=== PATIENT | female | born 1970 | race Two or more races ===

== ENCOUNTER 2022-01-10 14:46 | Emergency (ER) | payer OTHER, SELFPAY ==
[~2022-01-10] VITALS: Ht 180.3 cm; Wt 72.0 kg
[2022-01-10] MEDS ORDERED: normal saline 1000ml 1,000 ML IV ONE (18:45)
--- NOTE | 2022-01-10 19:02 | NUR ---
Pt to CT
[2022-01-10 19:10] LABS: BASOPHILS # (AUTO) 0.1 X10'3 (0-0.2); EOSINOPHILS % (AUTO) 0 % (0-6); HEMATOCRIT 39.2 % (35.0-45.0); HEMOGLOBIN 13.5 g/dl (12.0-16.0); LYMPHOCYTES # (AUTO) 1.1 X10'3 (1.1-4.8); LYMPHOCYTES % (AUTO) 21.1 % (21-51); MEAN CORPUSCULAR HEMOGLOBIN 36.4 PG (27.0-31.0); MEAN CORPUSCULAR HGB CONC 34.5 g/dL (33.0-36.5); MEAN CORPUSCULAR VOLUME 105.8 FL (78-98); MEAN PLATELET VOLUME 9.1 FL (7.4-10.4); MONOCYTES # (AUTO) 0.4 X10'3 (0-0.9); MONOCYTES % (AUTO) 7.4 % (2-12); NEUTROPHILS # (AUTO) 3.7 X10'3 (1.8-7.7); NEUTROPHILS % (AUTO) 70.5 % (42-75); RED BLOOD COUNT 3.71 X10'6 (4.20-5.60); RED CELL DISTRIBUTION WIDTH 12.6 % (11.5-14.5); WHITE BLOOD COUNT 5.2 X10'3 (4.5-11.0)
[2022-01-10 19:27] LABS: ALANINE AMINOTRANSFERASE 410 U/L (12-78); ALBUMIN 3.3 G/DL (3.4-5.0); ALKALINE PHOSPHATASE 119 IU/L (46-116); ANION GAP 14 (8-16); BILIRUBIN,TOTAL 4.8 MG/DL (0.1-1.0); BLOOD UREA NITROGEN 6 MG/DL (7-18); BUN/CREATININE RATIO 7.5 (6.6-38.0); CALCIUM 9.2 MG/DL (8.5-10.1); CHLORIDE 99 MMOL/L (99-107); GLUCOSE 109 MG/DL (70-104); POTASSIUM 3.7 MMOL/L (3.5-5.1); SODIUM 136 MMOL/L (135-145); TOTAL CARBON DIOXIDE 23.5 MMOL/L (24-32); eGFR 76 ML/MIN
[2022-01-10 19:53] LABS: ALBUMIN/GLOBULIN RATIO 0.9 (1.1-1.5)
[2022-01-10 19:55] LABS: ASPARTATE AMINO TRANSFERASE 1297 U/L (10-37)
[2022-01-10 19:58] LABS: PLATELET COUNT 44 X10'3 (140-440)
[2022-01-10 20:31] VITALS: BP 120/85
== END 2022-01-10 21:11 | disposition home or self-care (01) ==
LOC: ER 14:47
DX: S00.83XA Contusion of other part of head, initial encounter (principal); R11.0 Nausea; R42 Dizziness and giddiness; Z72.89 Other problems related to lifestyle; W22.8XXA Striking against or struck by other objects, initial encounter; Y93.89 Activity, other specified; Y92.89 Other specified places as the place of occurrence of the external cause; Y99.8 Other external cause status
CPT/HCPCS: 36415; 70450; 70486; 71045; 80053; 82948; 85025; 93005; 96360; 99285; J7030

== ENCOUNTER 2023-04-15 07:16 | Day surgery (SDC) | payer BC ==
[~2023-04-15] VITALS: Ht 180.3 cm; Wt 76.9 kg
[2023-04-15] VITALS (7 sets, daily range): BP systolic 91–104; BP diastolic 58–71; PULSE 80–89; RESP 14–15; TEMP 98; O2SAT 95–97
[2023-04-15] MEDS ORDERED: albumin 25% 100mL bottle x 1 IV PRN (07:45)
[2023-04-15] MEDS ORDERED: SODI100035 PO (08:09)
[2023-04-15] MEDS ORDERED: MIDO5TAB4 PO (08:09)
[2023-04-15] MEDS ORDERED: SPIR100T5 PO (08:09)
[2023-04-15] MEDS ORDERED: PROP20TA6 PO (08:09)
[2023-04-15] MEDS ORDERED: FURO20TA4 PO (08:09)
[2023-04-15] MEDS ORDERED: MORP15TA PO (08:09)
[2023-04-15] MEDS ORDERED: SPIR25TA5 PO (08:09)
[2023-04-15] MEDS ORDERED: OMEP40CA21 PO (08:09)
[2023-04-15] MEDS ORDERED: MULT-1085 PO (08:10)
== END 2023-04-15 11:10 | disposition home or self-care (01) ==
LOC: SSTAY O 07:16
PROVIDERS: ATTEND Radiology Vascular & Interventional Radiology
DX: K70.31 Alcoholic cirrhosis of liver with ascites (principal); K21.9 Gastro-esophageal reflux disease without esophagitis; I95.9 Hypotension, unspecified; F10.21 Alcohol dependence, in remission; Z79.899 Other long term (current) drug therapy
CPT/HCPCS: 49083; C1729; J3490; P9047; A6258; A6449

== ENCOUNTER 2023-04-23 07:39 | Day surgery (SDC) | payer BC ==
[~2023-04-23] VITALS: Ht 180.3 cm; Wt 73.7 kg
[~2023-04-23 07:39] MED LIST: FURO20TA4 PO; MIDO5TAB4 PO; MORP15TA PO; MULT-1085 PO; OMEP40CA21 PO; PROP20TA6 PO; SODI100035 PO; SPIR25TA5 PO
[2023-04-23] MEDS ORDERED: albumin 25% 100mL bottle x 1 IV PRN (08:00)
[2023-04-23 08:09] VITALS: BP 98/75; PULSE 73; RESP 16; TEMP 97.9; O2SAT 98
[2023-04-23] MEDS ORDERED: LIDOcaine 1% 30ml preserv. free vial SQ STA (08:10)
[2023-04-23 10:15] VITALS: BP 107/71; PULSE 80; RESP 16; O2SAT 98
[2023-04-23 10:30] VITALS: BP 95/61; PULSE 71; RESP 16; O2SAT 98
[2023-04-23 10:40] VITALS: BP 89/57; PULSE 72; RESP 16; O2SAT 98
[2023-04-23 10:55] VITALS: BP 92/57; PULSE 74; RESP 16; O2SAT 98
[2023-04-23 11:10] VITALS: BP 98/56; PULSE 72; RESP 16; O2SAT 98
== END 2023-04-23 11:20 | disposition home or self-care (01) ==
LOC: SSTAY O 07:39
PROVIDERS: ATTEND Radiology Diagnostic Radiology
DX: K70.31 Alcoholic cirrhosis of liver with ascites (principal); K21.9 Gastro-esophageal reflux disease without esophagitis; I95.9 Hypotension, unspecified; Z79.899 Other long term (current) drug therapy; F10.91 Alcohol use, unspecified, in remission
CPT/HCPCS: 49083; C1729; J3490; P9047; A6258

== ENCOUNTER 2023-04-30 06:12 | Day surgery (SDC) | payer BC ==
[~2023-04-30] VITALS: Ht 180.3 cm; Wt 71.5 kg
[2023-04-30] VITALS (9 sets, daily range): BP systolic 81–91; BP diastolic 52–60; PULSE 73–77; RESP 16; TEMP 98; O2SAT 91–96
[2023-04-30] MEDS ORDERED: albumin 25% 100mL bottle x 1 IV PRN (06:35)
--- NOTE | 2023-04-30 08:25 | NUR ---
Elizabeth Marie PA in to speak with pt re low BP. Procedure cancelled due to low BP.
== END 2023-04-30 08:25 | disposition home or self-care (01) ==
LOC: SSTAY O 06:12
PROVIDERS: ATTEND Radiology Vascular & Interventional Radiology
DX: K70.31 Alcoholic cirrhosis of liver with ascites (principal); Z53.8 Procedure and treatment not carried out for other reasons; I95.9 Hypotension, unspecified; K21.9 Gastro-esophageal reflux disease without esophagitis; F10.21 Alcohol dependence, in remission; Z79.899 Other long term (current) drug therapy; Z98.890 Other specified postprocedural states
CPT/HCPCS: A6258; A6449

== ENCOUNTER 2023-05-07 07:10 | Day surgery (SDC) | payer BC ==
[~2023-05-07] VITALS: Ht 180.3 cm; Wt 73.8 kg
[~2023-05-07 07:10] MED LIST changes: -MORP15TA PO
[2023-05-07 07:30] VITALS: BP 71/46; PULSE 63; RESP 14; TEMP 97.7; O2SAT 95
[2023-05-07 07:32] VITALS: BP 69/40
[2023-05-07] MEDS ORDERED: albumin 25% 100mL bottle x 1 IV PRN (07:35)
--- NOTE | 2023-05-07 07:45 | NUR ---
Pt has extremely low BP, checked automatic and manual. Pt's boyfriend stated her BP at home was 50s/30s. Notified Jaspal Marie. Pt transferred to ER. Report given at bedside to ER nurse Eladia.
[2023-05-07] MEDS ORDERED: MIDO10TA PO (13:55)
[2023-05-07] MEDS ORDERED: NAPR-996 PO (13:58)
[2023-05-07] MEDS ORDERED: TRAZ-251 PO (13:58)
== END 2023-05-07 07:45 | disposition home or self-care (01) ==
LOC: SSTAY O 07:10
PROVIDERS: ATTEND Radiology Vascular & Interventional Radiology
DX: R18.8 Other ascites (principal); Z53.8 Procedure and treatment not carried out for other reasons; I95.9 Hypotension, unspecified
CPT/HCPCS: A6258; A6449

== ENCOUNTER 2023-05-07 07:50 | Inpatient (IN) | payer BC ==
[2023-05-07] VITALS (9 sets, daily range): BP systolic 94–110; BP diastolic 61–73; PULSE 63–79; RESP 14–24; O2SAT 90–96
[~2023-05-07] VITALS: Ht 180.3 cm; Wt 81.4 kg
[2023-05-07] MEDS ORDERED: normal saline 1000ml 1,000 ML IVB ONE (08:00)
[2023-05-07] MEDS ORDERED: albumin (human) 25% 100ml IV 100 ML IV ONE (08:00)
[2023-05-07] MEDS ORDERED: normal saline 1000ML IV soln IVB PRN (08:10)
--- NOTE | 2023-05-07 08:59 | NUR ---
Per Dr. Anthony, I can give another 1 liter of NS but run it at 250 ml instead of fast bolus
--- NOTE | 2023-05-07 09:07 | NUR ---
Patient complaining of shortness of breath, O2 sat 92% on room air. Hooked patient to O2 at 2 lpm
[2023-05-07] MEDS ORDERED: CefTRIAXone/D5W-Rocephin 1gm 50 ML IV ONE (09:20)
[2023-05-07 10:06] LABS: MEAN PLATELET VOLUME 9.2 FL (7.4-10.4)
[2023-05-07 10:08] LABS: BASOPHILS # (AUTO) 0.1 X10'3 (0-0.2); BASOPHILS % (AUTO) 1.1 % (0-1); EOSINOPHILS # (AUTO) 0.2 X10'3 (0-0.9); EOSINOPHILS % (AUTO) 2.4 % (0-6); HEMATOCRIT 31.8 % (35.0-45.0); HEMOGLOBIN 10.9 g/dl (12.0-16.0); LYMPHOCYTES # (AUTO) 2.7 X10'3 (1.1-4.8); LYMPHOCYTES % (AUTO) 31.6 % (21-51); MEAN CORPUSCULAR HEMOGLOBIN 35.8 PG (27.0-31.0); MEAN CORPUSCULAR HGB CONC 34.4 g/dL (33.0-36.5); MONOCYTES % (AUTO) 11.4 % (2-12); NEUTROPHILS # (AUTO) 4.7 X10'3 (1.8-7.7); NEUTROPHILS % (AUTO) 53.5 % (42-75); PLATELET COUNT 152 X10'3 (140-440); RED BLOOD COUNT 3.06 X10'6 (4.20-5.60); WHITE BLOOD COUNT 8.7 X10'3 (4.5-11.0)
--- NOTE | 2023-05-07 10:13 | NUR ---
Dr. Anthony was notified about the patient barely making urine output after the adams cath was placed. Urine output approx. 2-3 ml only. He asked me to give the remaining bolus left from the 1L NS that was infusing at 250 ml/hr
[2023-05-07 10:17] LABS: APTT 36 SECONDS (22-32); INR 1.3 INR
[2023-05-07 10:29] LABS: ALANINE AMINOTRANSFERASE 23 U/L (12-78); ALBUMIN 2.3 G/DL (3.4-5.0); ALBUMIN/GLOBULIN RATIO 0.5 (1.1-1.5); ALKALINE PHOSPHATASE 165 IU/L (46-116); ANION GAP 8 (8-16); ASPARTATE AMINO TRANSFERASE 36 U/L (10-37); BILIRUBIN,TOTAL 4.2 MG/DL (0.1-1.0); BLOOD UREA NITROGEN 25 MG/DL (7-18); BUN/CREATININE RATIO 11.5 (10.0-20.0); CALCIUM 8.6 MG/DL (8.5-10.1); CHLORIDE 94 MMOL/L (99-107); CREATININE 2.18 MG/DL (0.40-0.90); GLUCOSE 100 MG/DL (70-104); MAGNESIUM 1.6 MG/DL (1.5-2.4); POTASSIUM 3.6 MMOL/L (3.5-5.1); SODIUM 129 MMOL/L (135-145); TOTAL CARBON DIOXIDE 27.5 MMOL/L (24-32); eCRCL 34 ML/MIN; eGFR 24 ML/MIN
[2023-05-07] MEDS ORDERED: albumin (human) 25% 100 ML IV solution IV ONE ×2 (10:35→11:40)
[2023-05-07 10:37] LABS: LIPASE 1122 U/L (73-393)
[2023-05-07 11:11] LABS: BILIRUBIN,URINE LARGE (Neg); CLARITY,URINE CLOUDY (Clear); COLOR,URINE YELLOW (Yellow); GLUCOSE, URINE 100 mg/dl (Neg); KETONES,URINE 15 mg/dl (Neg); LEUKOCYTE ESTERASE ,URINE TRACE (Neg); NITRITES, URINE POSITIVE (Neg); OCCULT BLOOD,URINE NEGATIVE (Neg); PROTEIN,URINE 100 mg/dl (Neg)
[2023-05-07 11:22] LABS: UA COLLECTION TYPE FOLEY CATH
[2023-05-07 11:25] LABS: BACTERIA,URINE NONE SEEN /HPF (Neg); MUCUS STRANDS NONE SEEN /LPF (Neg); RBC,URINE NONE SEEN /HPF (0-2); SQUAMOUS EPITHELIAL CELL,UR FEW /LPF (FEW); WBC,URINE 0-4 /HPF (0-4)
[2023-05-07] MEDS ORDERED: albumin (human) 25% 100ml IV 100 ML in normal saline 500ml IV soln 400 ML IV ONE ×2 (11:45→12:15)
[2023-05-07] MEDS ORDERED: albumin (human) 25% 100ml IV 500 ML IV ONE (11:50)
[2023-05-07] MEDS ORDERED: magnesium hydroxide 30ml (MOM) UD suspension PO PRN ×2 (12:00→12:20)
[2023-05-07] MEDS ORDERED: magnesium 2GM in 50ml NS 50 ML IV PRN (12:00)
[2023-05-07] MEDS ORDERED: magnesium Cl slow-release 64mg tablet PO PRN (12:00)
[2023-05-07] MEDS ORDERED: VANCOMYCIN 750MG IV in NS 250 ML IV SCH (12:00)
[2023-05-07] MEDS ORDERED: magnesium 4gm in 100ml NS 100 ML IV PRN (12:00)
[2023-05-07] MEDS ORDERED: ondansetron/PF 4mg/2ml inj IV PRN (12:00)
[2023-05-07] MEDS: normal saline 1000ml 1,000 ML IV SCH ×2 (12:00→21:28)
[2023-05-07] MEDS ORDERED: acetaminophen 325mg tablet PO PRN ×3 (12:00→12:20)
[2023-05-07] MEDS ORDERED: potassium Cl 40MEQ/1/2NS 520ml 520 ML IV PRN (12:00)
[2023-05-07] MEDS ORDERED: LidoCAINE 2% Topical Jelly 11mL syringe TOP ONE (12:00)
[2023-05-07] MEDS ORDERED: potassium Cl 20 mEq SR tablet PO PRN (12:00)
[2023-05-07] MEDS ORDERED: mag hydrox/Alum hydrox/simeth 30ml oral suspension PO PRN (12:00)
[2023-05-07] MEDS ORDERED: albumin (Human) 5% 250ml 500 ML IV ONE (12:38)
[2023-05-07] MEDS ORDERED: albumin (Human) 5% 250ml 250 ML IV ONE (12:43)
--- NOTE | 2023-05-07 12:48 | NUR ---
Dr. Anthony inserted a left SC quad central line at bedside
[2023-05-07] MEDS: NORepinephrine 8mg/ 250ml NS 250 ML IV SCH ×2 (13:24→21:24)
[2023-05-07] MEDS ORDERED: MIDO10TA PO (13:55)
[2023-05-07] MEDS ORDERED: TRAZ-251 PO (13:58)
[2023-05-07] MEDS ORDERED: NAPR-996 PO (13:58)
--- NOTE | 2023-05-07 15:27 | NUR ---
Patient in room ED 2. I have received report from Eladia WEN and had the opportunity to ask questions and assume patient care.
[2023-05-07] MEDS: albumin (Human) 5% 250ml 250 ML IV SCH ×3 (18:00→22:45)
--- NOTE | 2023-05-07 18:12 | NUR ---
Problems reprioritized. Patient report given, questions answered & plan of care reviewed with Oneyda WEN.
[2023-05-07] MEDS: morphine 4 MG/ML inj SYRINge IV PRN (19:55)
[2023-05-07] MEDS: K and/or MAG REPLACEMENT MC SCH (20:00)
[2023-05-07] MEDS: heparin, porcine 5000 units/ml vial SQ SCH (20:00)
[2023-05-07] MEDS: docusate sod 100mg capsule PO SCH (20:00)
[2023-05-07] MEDS: morphine 2 MG/ML inj. syringe IV PRN (22:44)
[2023-05-08] VITALS (25 sets, daily range): BP systolic 89–114; BP diastolic 53–71; PULSE 61–85; RESP 10–19; O2SAT 93–98
[2023-05-08] MEDS: morphine 4 MG/ML inj SYRINge IV PRN ×2 (01:49→21:53)
[2023-05-08] MEDS: albumin (Human) 5% 250ml 250 ML IV SCH ×7 (01:49→21:07)
[2023-05-08 02:49] LABS: MAGNESIUM 1.6 MG/DL (1.5-2.4); POTASSIUM 3.2 MMOL/L (3.5-5.1)
--- NOTE | 2023-05-08 06:16 | NUR ---
Problems reprioritized. Patient report given, questions answered & plan of care reviewed with VITA WEN.
[2023-05-08] MEDS: docusate sod 100mg capsule PO SCH ×2 (07:26→19:14)
[2023-05-08] MEDS: nicotine 21mg patch - 24 hr TD SCH (07:26)
[2023-05-08] MEDS: potassium Cl 20 mEq SR tablet PO PRN ×2 (07:27→13:40)
[2023-05-08] MEDS: K and/or MAG REPLACEMENT MC SCH ×2 (07:27→19:20)
[2023-05-08] MEDS: pantoprazole 40MG/NS 100ML BAG 100 ML IV SCH (07:27)
[2023-05-08] MEDS: heparin, porcine 5000 units/ml vial SQ SCH ×2 (07:27→19:11)
[2023-05-08] MEDS: NORepinephrine 8mg/ 250ml NS 250 ML IV SCH ×2 (08:23→18:46)
[2023-05-08 09:20] LABS: BASOPHILS # (AUTO) 0.1 X10'3 (0-0.2); BASOPHILS % (AUTO) 1.2 % (0-1); EOSINOPHILS # (AUTO) 0.5 X10'3 (0-0.9); EOSINOPHILS % (AUTO) 5.1 % (0-6); HEMATOCRIT 28.3 % (35.0-45.0); HEMOGLOBIN 9.8 g/dl (12.0-16.0); LYMPHOCYTES # (AUTO) 3.7 X10'3 (1.1-4.8); LYMPHOCYTES % (AUTO) 35.2 % (21-51); MEAN CORPUSCULAR HEMOGLOBIN 35.9 PG (27.0-31.0); MEAN CORPUSCULAR HGB CONC 34.8 g/dL (33.0-36.5); MEAN CORPUSCULAR VOLUME 103.2 FL (78-98); MEAN PLATELET VOLUME 8.9 FL (7.4-10.4); MONOCYTES # (AUTO) 1.2 X10'3 (0-0.9); MONOCYTES % (AUTO) 11.8 % (2-12); NEUTROPHILS # (AUTO) 4.9 X10'3 (1.8-7.7); NEUTROPHILS % (AUTO) 46.7 % (42-75); PLATELET COUNT 136 X10'3 (140-440); RED BLOOD COUNT 2.74 X10'6 (4.20-5.60); RED CELL DISTRIBUTION WIDTH 15.2 % (11.5-14.5); WHITE BLOOD COUNT 10.6 X10'3 (4.5-11.0)
[2023-05-08] MEDS: CefTRIAXone/D5W-Rocephin 1gm 50 ML IV SCH (09:24)
[2023-05-08 09:38] LABS: ALANINE AMINOTRANSFERASE 19 U/L (12-78); ALBUMIN 3.4 G/DL (3.4-5.0); ALKALINE PHOSPHATASE 125 IU/L (46-116); ANION GAP 9 (8-16); ASPARTATE AMINO TRANSFERASE 27 U/L (10-37); BILIRUBIN,TOTAL 3.2 MG/DL (0.1-1.0); BLOOD UREA NITROGEN 26 MG/DL (7-18); BUN/CREATININE RATIO 11.4 (10.0-20.0); CALCIUM 8.7 MG/DL (8.5-10.1); CHLORIDE 97 MMOL/L (99-107); CREATININE 2.29 MG/DL (0.40-0.90); GLUCOSE 117 MG/DL (70-104); POTASSIUM 3.4 MMOL/L (3.5-5.1); SODIUM 131 MMOL/L (135-145); TOTAL CARBON DIOXIDE 24.8 MMOL/L (24-32); TOTAL PROTEIN 6.8 G/DL (6.4-8.2); eCRCL 32 ML/MIN; eGFR 22 ML/MIN
[2023-05-08] MEDS: midodrine 5mg tablet PO SCH ×3 (10:50→23:04)
[2023-05-08] MEDS ORDERED: albumin (human) 25% 100ml IV 100 ML IV ONE ×2 (10:53→11:40)
[2023-05-08] MEDS ORDERED: albumin (human) 25% 100 ML IV solution IV ONE (11:50)
--- NOTE | 2023-05-08 12:06 | NUR ---
Initial: Pt admit for ESLD, hypotension/septic shock, and ADRIANA vs hepatorenal syndrome per EMR. Pt started on a 2g sodium restricted diet today, pending PO intake. Per EMR pt receives paracentesis process 2 times a week and plan for possible paracentesis tomorrow per CICU round discussion. LBM on 05/07 receiving routine bowel care per EMR. Will continue to monitor. Recommendations: 1.continue low sodium diet 2.Monitor PO intake and need for ONS 3.consider adding MVI,thiamin, and folate due to Etoh hx 4.routine bowel care 5.scaled wt this admit;subsequent weekly scaled wt Addendum: 05/08/23 at [address] Amended: Links added.
[2023-05-08 15:40] LABS: ALBUMIN,BODY FLUID < 0.6 G/DL; TOTAL PROTEIN,BODY FLUID < 2.0 G/DL
[2023-05-08 15:53] LABS: BFAPPEAR CLOUDY; BFCOLOR YELLOW; BFSOURCE ASCITES FLD; BFVOLUME 60 ML
[2023-05-08 15:54] LABS: BF RBC COUNT 39 /CU MM; BF WBC COUNT 19 /CU MM (0-1000); LYMPHOCYTES,BODY FLUID 70 %; MONOCYTES,BODY FLUID 24 %; NEUTROPHILS,BODY FLUID 6 %
[2023-05-08] MEDS: ondansetron/PF 4mg/2ml inj IV PRN (17:09)
--- NOTE | 2023-05-08 18:30 | NUR ---
Patient in room CICU 2013. I have received report from Wes WEN and had the opportunity to ask questions and assume patient care.
[2023-05-09] VITALS (25 sets, daily range): BP systolic 85–119; BP diastolic 49–69; PULSE 75–101; RESP 12–20; O2SAT 91–97
[2023-05-09] MEDS: albumin (Human) 5% 250ml 250 ML IV SCH ×8 (00:18→22:10)
[2023-05-09 01:32] LABS: UREA NITROGEN 24HR,URINE 2.1 GM/24HR (7-20)
[2023-05-09 03:18] LABS: LIPASE 462 U/L (73-393); MAGNESIUM 1.5 MG/DL (1.5-2.4)
[2023-05-09 03:41] LABS: BASOPHILS # (AUTO) 0.1 X10'3 (0-0.2); BASOPHILS % (AUTO) 1.2 % (0-1); EOSINOPHILS # (AUTO) 0.4 X10'3 (0-0.9); EOSINOPHILS % (AUTO) 4.3 % (0-6); HEMATOCRIT 26.4 % (35.0-45.0); HEMOGLOBIN 9.2 g/dl (12.0-16.0); LYMPHOCYTES # (AUTO) 3.3 X10'3 (1.1-4.8); LYMPHOCYTES % (AUTO) 39.2 % (21-51); MEAN CORPUSCULAR HEMOGLOBIN 35.6 PG (27.0-31.0); MEAN CORPUSCULAR HGB CONC 34.7 g/dL (33.0-36.5); MEAN CORPUSCULAR VOLUME 102.5 FL (78-98); MONOCYTES % (AUTO) 11.5 % (2-12); NEUTROPHILS # (AUTO) 3.7 X10'3 (1.8-7.7); NEUTROPHILS % (AUTO) 43.8 % (42-75); PLATELET COUNT 120 X10'3 (140-440); RED BLOOD COUNT 2.57 X10'6 (4.20-5.60); RED CELL DISTRIBUTION WIDTH 14.9 % (11.5-14.5); WHITE BLOOD COUNT 8.4 X10'3 (4.5-11.0)
--- NOTE | 2023-05-09 06:15 | NUR ---
Problems reprioritized. Patient report given, questions answered & plan of care reviewed with Aubrey WEN.
[2023-05-09 07:26] LABS: ALANINE AMINOTRANSFERASE 14 U/L (12-78); ALBUMIN 3.7 G/DL (3.4-5.0); ALBUMIN/GLOBULIN RATIO 1.4 (1.1-1.5); ALKALINE PHOSPHATASE 93 IU/L (46-116); ANION GAP 12 (8-16); ASPARTATE AMINO TRANSFERASE 23 U/L (10-37); BILIRUBIN,TOTAL 2.3 MG/DL (0.1-1.0); BLOOD UREA NITROGEN 23 MG/DL (7-18); BUN/CREATININE RATIO 10.2 (10.0-20.0); CALCIUM 8.9 MG/DL (8.5-10.1); CHLORIDE 99 MMOL/L (99-107); CREATININE 2.26 MG/DL (0.40-0.90); GLUCOSE 134 MG/DL (70-104); POTASSIUM 3.6 MMOL/L (3.5-5.1); SODIUM 134 MMOL/L (135-145); TOTAL CARBON DIOXIDE 22.6 MMOL/L (24-32); TOTAL PROTEIN 6.3 G/DL (6.4-8.2); eCRCL 33 ML/MIN; eGFR 23 ML/MIN
[2023-05-09] MEDS: pantoprazole 40MG/NS 100ML BAG 100 ML IV SCH (07:53)
[2023-05-09] MEDS: folic acid 1mg tablet PO SCH (08:00)
[2023-05-09] MEDS: thiamine 100mg tablet PO SCH (08:00)
[2023-05-09] MEDS: docusate sod 100mg capsule PO SCH ×2 (08:00→20:14)
[2023-05-09] MEDS: midodrine 5mg tablet PO SCH ×3 (08:00→23:29)
[2023-05-09] MEDS: K and/or MAG REPLACEMENT MC SCH ×2 (08:00→20:00)
[2023-05-09] MEDS: multivitamins, therapeutics tablet PO SCH (08:00)
[2023-05-09] MEDS: nicotine 21mg patch - 24 hr TD SCH (08:01)
[2023-05-09] MEDS: heparin, porcine 5000 units/ml vial SQ SCH ×2 (08:01→20:15)
[2023-05-09] MEDS: CefTRIAXone/D5W-Rocephin 1gm 50 ML IV SCH (08:16)
[2023-05-09] MEDS ORDERED: normal saline 1000ml 1,000 ML IV ONE ×2 (09:40→11:10)
[2023-05-09] MEDS ORDERED: albumin (human) 25% 100 ML IV solution IV ONE (11:10)
[2023-05-09] MEDS ORDERED: albumin (human) 25% 100ml IV 400 ML IV ONE (11:25)
[2023-05-09] MEDS: NORepinephrine 8mg/ 250ml NS 250 ML IV SCH (12:37)
[2023-05-09] MEDS: morphine 2 MG/ML inj. syringe IV PRN ×2 (16:50→20:58)
--- NOTE | 2023-05-09 18:30 | NUR ---
Received patient report from BEHZAD Parks, Questions were answered and plan of care reviewed. Assumed care of patient. Patient without complaints, BLL, sr up x3, call connors within reach.
--- NOTE | 2023-05-09 18:35 | NUR ---
Problems reprioritized. Patient report given, questions answered & plan of care reviewed with BEHZAD Goel.
[2023-05-10] VITALS (23 sets, daily range): BP systolic 94–120; BP diastolic 55–74; PULSE 79–99; RESP 12–29; O2SAT 89–97
[2023-05-10] MEDS: albumin (Human) 5% 250ml 250 ML IV SCH ×9 (01:14→22:51)
[2023-05-10] MEDS: morphine 2 MG/ML inj. syringe IV PRN ×4 (01:15→15:18)
[2023-05-10 02:21] LABS: MAGNESIUM 1.5 MG/DL (1.5-2.4)
--- NOTE | 2023-05-10 06:29 | NUR ---
Patient report given, questions answered & plan of care reviewed with BEHZAD Leon
[2023-05-10] MEDS: K and/or MAG REPLACEMENT MC SCH ×2 (08:00→20:00)
[2023-05-10] MEDS: CefTRIAXone/D5W-Rocephin 1gm 50 ML IV SCH (08:20)
[2023-05-10] MEDS: folic acid 1mg tablet PO SCH (08:20)
[2023-05-10] MEDS: midodrine 5mg tablet PO SCH ×3 (08:20→23:33)
[2023-05-10] MEDS: docusate sod 100mg capsule PO SCH ×2 (08:20→20:23)
[2023-05-10] MEDS: pantoprazole 40MG/NS 100ML BAG 100 ML IV SCH (08:20)
[2023-05-10] MEDS: multivitamins, therapeutics tablet PO SCH (08:21)
[2023-05-10] MEDS: nicotine 21mg patch - 24 hr TD SCH (08:21)
[2023-05-10] MEDS: thiamine 100mg tablet PO SCH (08:21)
[2023-05-10] MEDS: heparin, porcine 5000 units/ml vial SQ SCH ×2 (08:21→20:23)
[2023-05-10 08:33] LABS: ALANINE AMINOTRANSFERASE 13 U/L (12-78); ALBUMIN/GLOBULIN RATIO 1.9 (1.1-1.5); ALKALINE PHOSPHATASE 79 IU/L (46-116); ANION GAP 13 (8-16); ASPARTATE AMINO TRANSFERASE 17 U/L (10-37); BILIRUBIN,TOTAL 2.3 MG/DL (0.1-1.0); BLOOD UREA NITROGEN 16 MG/DL (7-18); BUN/CREATININE RATIO 9.2 (10.0-20.0); CHLORIDE 102 MMOL/L (99-107); CREATININE 1.74 MG/DL (0.40-0.90); GLUCOSE 121 MG/DL (70-104); POTASSIUM 3.5 MMOL/L (3.5-5.1); SODIUM 136 MMOL/L (135-145); TOTAL CARBON DIOXIDE 20.6 MMOL/L (24-32); TOTAL PROTEIN 6.1 G/DL (6.4-8.2); eCRCL 42 ML/MIN; eGFR 31 ML/MIN
[2023-05-10 08:39] LABS: BASOPHILS # (AUTO) 0.1 X10'3 (0-0.2); BASOPHILS % (AUTO) 1.3 % (0-1); EOSINOPHILS # (AUTO) 0.3 X10'3 (0-0.9); EOSINOPHILS % (AUTO) 3.7 % (0-6); HEMATOCRIT 25.9 % (35.0-45.0); HEMOGLOBIN 8.8 g/dl (12.0-16.0); LYMPHOCYTES # (AUTO) 3.2 X10'3 (1.1-4.8); LYMPHOCYTES % (AUTO) 43.2 % (21-51); MEAN CORPUSCULAR HEMOGLOBIN 35.2 PG (27.0-31.0); MEAN CORPUSCULAR VOLUME 103.5 FL (78-98); MEAN PLATELET VOLUME 9.3 FL (7.4-10.4); MONOCYTES # (AUTO) 0.7 X10'3 (0-0.9); MONOCYTES % (AUTO) 9.4 % (2-12); NEUTROPHILS # (AUTO) 3.2 X10'3 (1.8-7.7); NEUTROPHILS % (AUTO) 42.4 % (42-75); PLATELET COUNT 108 X10'3 (140-440); RED CELL DISTRIBUTION WIDTH 15.5 % (11.5-14.5); WHITE BLOOD COUNT 7.5 X10'3 (4.5-11.0)
[2023-05-10] MEDS: lactulose 20gm/30ml cup PO SCH ×2 (10:34→20:23)
[2023-05-10] MEDS: ondansetron/PF 4mg/2ml inj IV PRN (15:18)
[2023-05-11] VITALS (24 sets, daily range): BP systolic 98–120; BP diastolic 52–75; PULSE 97–114; RESP 14–24; O2SAT 90–95
[2023-05-11] MEDS: albumin (Human) 5% 250ml 250 ML IV SCH ×5 (01:14→17:32)
[2023-05-11] MEDS: morphine 2 MG/ML inj. syringe IV PRN ×4 (01:55→20:23)
[2023-05-11 02:31] LABS: SODIUM,URINE RANDOM < 15 MEQ/L
[2023-05-11 05:02] LABS: BASOPHILS # (AUTO) 0.1 X10'3 (0-0.2); BASOPHILS % (AUTO) 0.9 % (0-1); EOSINOPHILS # (AUTO) 0.2 X10'3 (0-0.9); EOSINOPHILS % (AUTO) 1.4 % (0-6); HEMATOCRIT 24.1 % (35.0-45.0); HEMOGLOBIN 8.1 g/dl (12.0-16.0); LYMPHOCYTES # (AUTO) 2.7 X10'3 (1.1-4.8); LYMPHOCYTES % (AUTO) 22.5 % (21-51); MEAN CORPUSCULAR HEMOGLOBIN 34.8 PG (27.0-31.0); MEAN CORPUSCULAR HGB CONC 33.7 g/dL (33.0-36.5); MEAN PLATELET VOLUME 9.4 FL (7.4-10.4); MONOCYTES % (AUTO) 8.1 % (2-12); NEUTROPHILS # (AUTO) 8.1 X10'3 (1.8-7.7); NEUTROPHILS % (AUTO) 67.1 % (42-75); PLATELET COUNT 99 X10'3 (140-440); RED BLOOD COUNT 2.34 X10'6 (4.20-5.60); RED CELL DISTRIBUTION WIDTH 15.4 % (11.5-14.5); WHITE BLOOD COUNT 12.1 X10'3 (4.5-11.0)
[2023-05-11 05:08] LABS: ALANINE AMINOTRANSFERASE 10 U/L (12-78); ALKALINE PHOSPHATASE 59 IU/L (46-116); ANION GAP 11 (8-16); ASPARTATE AMINO TRANSFERASE 14 U/L (10-37); BILIRUBIN,TOTAL 3.2 MG/DL (0.1-1.0); BLOOD UREA NITROGEN 14 MG/DL (7-18); BUN/CREATININE RATIO 10.4 (10.0-20.0); CALCIUM 9.1 MG/DL (8.5-10.1); CHLORIDE 104 MMOL/L (99-107); CREATININE 1.35 MG/DL (0.40-0.90); GLUCOSE 102 MG/DL (70-104); MAGNESIUM 1.3 MG/DL (1.5-2.4); POTASSIUM 3.9 MMOL/L (3.5-5.1); SODIUM 136 MMOL/L (135-145); TOTAL CARBON DIOXIDE 21.2 MMOL/L (24-32); eCRCL 54 ML/MIN; eGFR 41 ML/MIN
[2023-05-11] MEDS: NORepinephrine 8mg/ 250ml NS 250 ML IV SCH (06:40)
[2023-05-11] MEDS: K and/or MAG REPLACEMENT MC SCH ×2 (08:00→20:00)
[2023-05-11] MEDS: CefTRIAXone/D5W-Rocephin 1gm 50 ML IV SCH (08:16)
[2023-05-11] MEDS: pantoprazole 40MG/NS 100ML BAG 100 ML IV SCH (08:16)
[2023-05-11] MEDS: thiamine 100mg tablet PO SCH (08:18)
[2023-05-11] MEDS: nicotine 21mg patch - 24 hr TD SCH (08:18)
[2023-05-11] MEDS: docusate sod 100mg capsule PO SCH ×2 (08:18→20:00)
[2023-05-11] MEDS: midodrine 5mg tablet PO SCH ×2 (08:18→16:15)
[2023-05-11] MEDS: folic acid 1mg tablet PO SCH (08:18)
[2023-05-11] MEDS: multivitamins, therapeutics tablet PO SCH (08:18)
[2023-05-11] MEDS: lactulose 20gm/30ml cup PO SCH ×2 (08:19→20:00)
[2023-05-11] MEDS: heparin, porcine 5000 units/ml vial SQ SCH ×2 (09:17→20:23)
--- NOTE | 2023-05-11 10:20 | NUR ---
F/u 05/11: Pt PO remains poor ~31% avg initial Na-restricted diet declining to 0% mostly past [address] recommends Ensure Enlive TIDWM to assist meeting needs; MD notified. -15L paracentesis 05/08 w/ noted abdominal pain persisting per EMR; likely influencing PO trends. LBM 05/10 though only smear receiving routine colace and lactulose per EMR. Receiving routine thiamine, folic acid, and MVI for etoh hx. Will monitor for further nutrition intervention needs. Recommendations: 1. continue low sodium diet; liberalize to regular if poor PO persists; encourage PO 2. Ensure Enlive TIDWM; pending physician verification of ONS 3. continue routine MVI, thiamine, and folate due to Etoh hx 4. routine bowel care 5. daily scaled wt Addendum: 05/11/23 at [address] Amended: Links added.
[2023-05-11] MEDS: lactose-reduced food (Ensure Enlive) - 237ml bottle PO SCH ×2 (13:00→18:00)
--- NOTE | 2023-05-11 16:36 | NUR ---
provided answers to questions about liver disease and current needs.
--- NOTE | 2023-05-11 16:37 | NUR ---
Dr. Hill is able to observe urine color and aware of decreased output. He has advised patient to lie on side to support renal function. Pt. has pain with positioning but is attempting to stay in the side position.
[2023-05-12] VITALS (23 sets, daily range): BP systolic 92–116; BP diastolic 55–76; PULSE 95–107; RESP 15–27; TEMP 97.9–98.1; O2SAT 91–98
[2023-05-12] MEDS: midodrine 5mg tablet PO SCH ×4 (00:02→23:43)
[2023-05-12] MEDS: morphine 2 MG/ML inj. syringe IV PRN ×3 (00:29→08:50)
[2023-05-12] MEDS: NORepinephrine 8mg/ 250ml NS 250 ML IV SCH ×2 (00:44→11:01)
[2023-05-12 02:39] LABS: ALKALINE PHOSPHATASE 58 IU/L (46-116); BILIRUBIN,TOTAL 4.1 MG/DL (0.1-1.0); BLOOD UREA NITROGEN 12 MG/DL (7-18); CHLORIDE 104 MMOL/L (99-107); POTASSIUM 3.8 MMOL/L (3.5-5.1); TOTAL PROTEIN 6.1 G/DL (6.4-8.2)
[2023-05-12 02:51] LABS: BASOPHILS # (AUTO) 0.1 X10'3 (0-0.2); BASOPHILS % (AUTO) 1.3 % (0-1); EOSINOPHILS # (AUTO) 0.3 X10'3 (0-0.9); EOSINOPHILS % (AUTO) 3.1 % (0-6); HEMATOCRIT 24.3 % (35.0-45.0); HEMOGLOBIN 8.3 g/dl (12.0-16.0); LYMPHOCYTES # (AUTO) 2.8 X10'3 (1.1-4.8); LYMPHOCYTES % (AUTO) 25.2 % (21-51); MEAN CORPUSCULAR HEMOGLOBIN 35.5 PG (27.0-31.0); MEAN CORPUSCULAR HGB CONC 34.2 g/dL (33.0-36.5); MEAN CORPUSCULAR VOLUME 103.8 FL (78-98); MEAN PLATELET VOLUME 9.5 FL (7.4-10.4); MONOCYTES # (AUTO) 1.1 X10'3 (0-0.9); NEUTROPHILS # (AUTO) 6.8 X10'3 (1.8-7.7); NEUTROPHILS % (AUTO) 60.4 % (42-75); PLATELET COUNT 99 X10'3 (140-440); RED BLOOD COUNT 2.34 X10'6 (4.20-5.60); RED CELL DISTRIBUTION WIDTH 15.9 % (11.5-14.5); WHITE BLOOD COUNT 11.3 X10'3 (4.5-11.0)
[2023-05-12 06:07] LABS: ALANINE AMINOTRANSFERASE 12 U/L (12-78); ALBUMIN 4.1 G/DL (3.4-5.0); ALBUMIN/GLOBULIN RATIO 2.1 (1.1-1.5); ANION GAP 12 (8-16); ASPARTATE AMINO TRANSFERASE 16 U/L (10-37); BUN/CREATININE RATIO 9.5 (10.0-20.0); CALCIUM 9.4 MG/DL (8.5-10.1); CREATININE 1.26 MG/DL (0.40-0.90); GLUCOSE 101 MG/DL (70-104); SODIUM 137 MMOL/L (135-145); TOTAL CARBON DIOXIDE 20.7 MMOL/L (24-32); eCRCL 58 ML/MIN; eGFR 45 ML/MIN
--- NOTE | 2023-05-12 06:31 | NUR ---
Patient report given, questions answered & plan of care reviewed with BEHZAD Goel
[2023-05-12] MEDS: pantoprazole 40MG/NS 100ML BAG 100 ML IV SCH (08:32)
[2023-05-12] MEDS: K and/or MAG REPLACEMENT MC SCH ×2 (08:36→19:41)
[2023-05-12] MEDS: docusate sod 100mg capsule PO SCH ×2 (08:41→19:40)
[2023-05-12] MEDS: lactulose 20gm/30ml cup PO SCH ×2 (08:41→19:37)
[2023-05-12] MEDS: thiamine 100mg tablet PO SCH (08:41)
[2023-05-12] MEDS: multivitamins, therapeutics tablet PO SCH (08:41)
[2023-05-12] MEDS: folic acid 1mg tablet PO SCH (08:41)
[2023-05-12] MEDS: nicotine 21mg patch - 24 hr TD SCH (08:43)
[2023-05-12] MEDS: heparin, porcine 5000 units/ml vial SQ SCH ×2 (08:44→19:40)
[2023-05-12] MEDS ORDERED: furosemide 40mg tablet PO ONE (11:45)
[2023-05-12] MEDS: oxyCODONE IR 5mg (immed. release) tablet PO PRN ×3 (12:13→21:20)
--- NOTE | 2023-05-12 18:32 | NUR ---
Problems reprioritized. Patient report given, questions answered & plan of care reviewed with Aviva WEN, patient stable at transfer of care.
[2023-05-13] VITALS (9 sets, daily range): BP systolic 104–124; BP diastolic 56–74; PULSE 108–118; RESP 15–21; TEMP 97.8–98.6; O2SAT 94–98
[2023-05-13] MEDS: oxyCODONE IR 5mg (immed. release) tablet PO PRN ×4 (01:23→19:35)
--- NOTE | 2023-05-13 06:18 | NUR ---
Problems reprioritized. Patient report given, questions answered & plan of care reviewed with
--- NOTE | 2023-05-13 06:30 | NUR ---
Patient in room PCU 3018. I have received report from BEHZAD Perkins and had the opportunity to ask questions and assume patient care.
[2023-05-13] MEDS: K and/or MAG REPLACEMENT MC SCH ×2 (08:00→20:00)
[2023-05-13] MEDS: pantoprazole 40MG/NS 100ML BAG 100 ML IV SCH (08:59)
[2023-05-13] MEDS: docusate sod 100mg capsule PO SCH ×2 (08:59→19:39)
[2023-05-13] MEDS: multivitamins, therapeutics tablet PO SCH (09:00)
[2023-05-13] MEDS: midodrine 5mg tablet PO SCH ×3 (09:00→23:28)
[2023-05-13] MEDS: furosemide 40mg tablet PO SCH (09:01)
[2023-05-13] MEDS: lactulose 20gm/30ml cup PO SCH ×2 (09:02→19:36)
[2023-05-13] MEDS: folic acid 1mg tablet PO SCH (09:02)
[2023-05-13] MEDS: thiamine 100mg tablet PO SCH (09:02)
[2023-05-13] MEDS: nicotine 21mg patch - 24 hr TD SCH (09:04)
[2023-05-13] MEDS: heparin, porcine 5000 units/ml vial SQ SCH ×2 (09:04→19:37)
[2023-05-13 11:25] LABS: BASOPHILS # (AUTO) 0.1 X10'3 (0-0.2); BASOPHILS % (AUTO) 0.9 % (0-1); EOSINOPHILS # (AUTO) 0.4 X10'3 (0-0.9); EOSINOPHILS % (AUTO) 2.7 % (0-6); HEMATOCRIT 26.7 % (35.0-45.0); LYMPHOCYTES # (AUTO) 2.8 X10'3 (1.1-4.8); MEAN CORPUSCULAR HEMOGLOBIN 35.1 PG (27.0-31.0); MEAN CORPUSCULAR HGB CONC 33.8 g/dL (33.0-36.5); MEAN CORPUSCULAR VOLUME 103.8 FL (78-98); MEAN PLATELET VOLUME 9.1 FL (7.4-10.4); MONOCYTES # (AUTO) 1.5 X10'3 (0-0.9); NEUTROPHILS # (AUTO) 8.5 X10'3 (1.8-7.7); NEUTROPHILS % (AUTO) 64.4 % (42-75); PLATELET COUNT 105 X10'3 (140-440); RED BLOOD COUNT 2.58 X10'6 (4.20-5.60); RED CELL DISTRIBUTION WIDTH 16.1 % (11.5-14.5); WHITE BLOOD COUNT 13.3 X10'3 (4.5-11.0)
[2023-05-13 11:41] LABS: ALANINE AMINOTRANSFERASE 7 U/L (12-78); ALBUMIN 3.7 G/DL (3.4-5.0); ALKALINE PHOSPHATASE 82 IU/L (46-116); ANION GAP 13 (8-16); ASPARTATE AMINO TRANSFERASE 18 U/L (10-37); BLOOD UREA NITROGEN 17 MG/DL (7-18); BUN/CREATININE RATIO 15.3 (10.0-20.0); CALCIUM 9.6 MG/DL (8.5-10.1); CHLORIDE 100 MMOL/L (99-107); CREATININE 1.11 MG/DL (0.40-0.90); GLUCOSE 117 MG/DL (70-104); MAGNESIUM 1.4 MG/DL (1.5-2.4); POTASSIUM 3.6 MMOL/L (3.5-5.1); SODIUM 133 MMOL/L (135-145); TOTAL CARBON DIOXIDE 20.4 MMOL/L (24-32); eCRCL 66 ML/MIN; eGFR 52 ML/MIN
[2023-05-13 11:42] LABS: ALBUMIN/GLOBULIN RATIO 1.4 (1.1-1.5); TOTAL PROTEIN 6.4 G/DL (6.4-8.2)
[2023-05-13] MEDS: spironolactone 50 MG tablet PO SCH (12:01)
[2023-05-13] MEDS: NORepinephrine 8mg/ 250ml NS 250 ML IV SCH (12:52)
--- NOTE | 2023-05-13 13:43 | NUR ---
IR/Angio team in pt's room to do a paracentesis.
[2023-05-13] MEDS ORDERED: albumin (human) 25% 100 ML IV solution IV ONE (14:45)
--- NOTE | 2023-05-13 15:15 | NUR ---
Problems reprioritized. Patient report given, questions answered & plan of care reviewed with CAROLYN Em.
--- NOTE | 2023-05-13 22:35 | NUR ---
okayed to replace magnesium per protocol
[2023-05-13] MEDS ORDERED: magnesium Cl slow-release 64mg tablet PO PRN (23:15)
[2023-05-14] VITALS (7 sets, daily range): BP systolic 96–108; BP diastolic 48–60; PULSE 106–116; RESP 15–19; TEMP 98–98.5; O2SAT 96–99
[2023-05-14] MEDS: oxyCODONE IR 5mg (immed. release) tablet PO PRN ×4 (00:53→20:32)
--- NOTE | 2023-05-14 06:34 | NUR ---
Problems reprioritized. Patient report given, questions answered & plan of care reviewed with
[2023-05-14] MEDS ORDERED: magnesium Cl slow-release 64mg tablet PO SCH (08:00)
[2023-05-14] MEDS: lactulose 20gm/30ml cup PO SCH (09:39)
[2023-05-14] MEDS: pantoprazole 40MG/NS 100ML BAG 100 ML IV SCH (09:39)
[2023-05-14] MEDS: furosemide 40mg tablet PO SCH (09:40)
[2023-05-14] MEDS: midodrine 5mg tablet PO SCH ×2 (09:40→16:44)
[2023-05-14] MEDS: multivitamins, therapeutics tablet PO SCH (09:40)
[2023-05-14] MEDS: thiamine 100mg tablet PO SCH (09:41)
[2023-05-14] MEDS: spironolactone 50 MG tablet PO SCH (09:41)
[2023-05-14] MEDS: docusate sod 100mg capsule PO SCH ×2 (09:41→20:00)
[2023-05-14] MEDS: folic acid 1mg tablet PO SCH (09:41)
[2023-05-14] MEDS: heparin, porcine 5000 units/ml vial SQ SCH ×2 (09:42→20:33)
[2023-05-14] MEDS: nicotine 21mg patch - 24 hr TD SCH (09:43)
[2023-05-14 12:02] LABS: BASOPHILS # (AUTO) 0.1 X10'3 (0-0.2); BASOPHILS % (AUTO) 0.5 % (0-1); EOSINOPHILS # (AUTO) 0.4 X10'3 (0-0.9); EOSINOPHILS % (AUTO) 2.8 % (0-6); HEMATOCRIT 24.6 % (35.0-45.0); HEMOGLOBIN 8.3 g/dl (12.0-16.0); LYMPHOCYTES # (AUTO) 2.3 X10'3 (1.1-4.8); LYMPHOCYTES % (AUTO) 15.2 % (21-51); MEAN CORPUSCULAR HEMOGLOBIN 34.6 PG (27.0-31.0); MEAN CORPUSCULAR HGB CONC 33.8 g/dL (33.0-36.5); MEAN CORPUSCULAR VOLUME 102.2 FL (78-98); MEAN PLATELET VOLUME 9.5 FL (7.4-10.4); MONOCYTES # (AUTO) 1.5 X10'3 (0-0.9); MONOCYTES % (AUTO) 9.9 % (2-12); NEUTROPHILS # (AUTO) 10.8 X10'3 (1.8-7.7); NEUTROPHILS % (AUTO) 71.6 % (42-75); PLATELET COUNT 99 X10'3 (140-440)
[2023-05-14 12:24] LABS: ALBUMIN 3.4 G/DL (3.4-5.0); ALKALINE PHOSPHATASE 81 IU/L (46-116); ANION GAP 10 (8-16); ASPARTATE AMINO TRANSFERASE 16 U/L (10-37); BILIRUBIN,TOTAL 5.5 MG/DL (0.1-1.0); BLOOD UREA NITROGEN 17 MG/DL (7-18); CALCIUM 9.3 MG/DL (8.5-10.1); CHLORIDE 99 MMOL/L (99-107); CREATININE 1.13 MG/DL (0.40-0.90); GLUCOSE 130 MG/DL (70-104); MAGNESIUM 1.2 MG/DL (1.5-2.4); POTASSIUM 3.4 MMOL/L (3.5-5.1); PRO BRAIN NATRIURETIC PEPTIDE 4727 PG/ML (0-125); SODIUM 131 MMOL/L (135-145); TOTAL CARBON DIOXIDE 22.3 MMOL/L (24-32); eCRCL 65 ML/MIN; eGFR 51 ML/MIN
[2023-05-14 12:30] LABS: ALANINE AMINOTRANSFERASE < 6 U/L (12-78); ALBUMIN/GLOBULIN RATIO 1.4 (1.1-1.5); TOTAL PROTEIN 5.9 G/DL (6.4-8.2)
[2023-05-14] MEDS: K and/or MAG REPLACEMENT MC SCH ×2 (12:51→20:34)
[2023-05-14] MEDS ORDERED: magnesium 4gm in 100ml NS 100 ML IV PRN (13:15)
[2023-05-14] MEDS ORDERED: magnesium 2GM in 50ml NS 50 ML IV PRN (13:15)
[2023-05-14] MEDS ORDERED: potassium Cl 20 mEq SR tablet PO PRN (13:15)
[2023-05-14] MEDS ORDERED: potassium Cl 40MEQ/1/2NS 520ml 520 ML IV PRN (13:15)
[2023-05-14] MEDS: potassium Cl 20 mEq SR tablet PO PRN ×2 (13:29→20:32)
[2023-05-14] MEDS: lactose-reduced food (Ensure Enlive) - 237ml bottle PO SCH (18:00)
--- NOTE | 2023-05-14 18:38 | NUR ---
Problems reprioritized. Patient report given, questions answered & plan of care reviewed with BEHZAD Perkins.
--- NOTE | 2023-05-14 19:00 | NUR ---
Dr. Ott cld and is talking with [facility] about transfer, he need a cvc, Pt INR and cmp drawn early (2am).
[2023-05-14] MEDS: magnesium Cl slow-release 64mg tablet PO PRN (20:30)
[2023-05-15] MEDS: midodrine 5mg tablet PO SCH ×3 (00:01→16:11)
[2023-05-15 02:00] VITALS: BP 96/58; PULSE 105; RESP 14; TEMP 99; O2SAT 97
[2023-05-15] MEDS: potassium Cl 20 mEq SR tablet PO PRN (02:13)
[2023-05-15] MEDS: oxyCODONE IR 5mg (immed. release) tablet PO PRN ×4 (02:14→17:10)
[2023-05-15 04:18] LABS: BASOPHILS # (AUTO) 0.2 X10'3 (0-0.2); EOSINOPHILS # (AUTO) 0.8 X10'3 (0-0.9); HEMATOCRIT 23.9 % (35.0-45.0); HEMOGLOBIN 8.1 g/dl (12.0-16.0); LYMPHOCYTES # (AUTO) 3.2 X10'3 (1.1-4.8); MEAN CORPUSCULAR HEMOGLOBIN 34.6 PG (27.0-31.0); MEAN CORPUSCULAR HGB CONC 33.9 g/dL (33.0-36.5); MEAN CORPUSCULAR VOLUME 102.2 FL (78-98); MEAN PLATELET VOLUME 9.1 FL (7.4-10.4); MONOCYTES # (AUTO) 1.9 X10'3 (0-0.9); MONOCYTES % (AUTO) 9.8 % (2-12); NEUTROPHILS # (AUTO) 12.9 X10'3 (1.8-7.7); NEUTROPHILS % (AUTO) 68.2 % (42-75); PLATELET COUNT 97 X10'3 (140-440); RED BLOOD COUNT 2.34 X10'6 (4.20-5.60); RED CELL DISTRIBUTION WIDTH 16.2 % (11.5-14.5)
[2023-05-15 04:26] LABS: INR 2.1 INR; PROTHROMBIN TIME 21.4 SECONDS (9.0-12.0)
[2023-05-15 04:29] LABS: ALBUMIN 3.3 G/DL (3.4-5.0); ALKALINE PHOSPHATASE 86 IU/L (46-116); ANION GAP 11 (8-16); ASPARTATE AMINO TRANSFERASE 16 U/L (10-37); BILIRUBIN,TOTAL 5.8 MG/DL (0.1-1.0); BLOOD UREA NITROGEN 18 MG/DL (7-18); BUN/CREATININE RATIO 16.5 (10.0-20.0); CALCIUM 9.2 MG/DL (8.5-10.1); CHLORIDE 98 MMOL/L (99-107); CREATININE 1.09 MG/DL (0.40-0.90); GLUCOSE 121 MG/DL (70-104); MAGNESIUM 1.1 MG/DL (1.5-2.4); POTASSIUM 3.8 MMOL/L (3.5-5.1); SODIUM 130 MMOL/L (135-145); TOTAL CARBON DIOXIDE 21.4 MMOL/L (24-32); eCRCL 67 ML/MIN; eGFR 53 ML/MIN
[2023-05-15 04:40] LABS: ALANINE AMINOTRANSFERASE < 6 U/L (12-78); ALBUMIN/GLOBULIN RATIO 1.2 (1.1-1.5)
[2023-05-15 04:41] LABS: ACANTHOCYTES FEW; ANISOCYTOSIS 1+; BURR CELLS FEW; HYPOCHROMASIA 1+; PLATELET ESTIMATE DECREASED; TARGET CELLS 1+
--- NOTE | 2023-05-15 06:15 | NUR ---
Problems reprioritized. Patient report given, questions answered & plan of care reviewed with Igor.
[2023-05-15 07:00] VITALS: BP 88/54; PULSE 104; RESP 20; TEMP 98.6; O2SAT 100
--- NOTE | 2023-05-15 07:11 | NUR ---
Patient in room PCU 3018. I have received report from Maddie WEN and had the opportunity to ask questions and assume patient care.
[2023-05-15 08:00] VITALS: RESP 20; O2SAT 100
[2023-05-15] MEDS ORDERED: lactulose 20gm/30ml cup PO SCH (08:00)
[2023-05-15] MEDS: lactose-reduced food (Ensure Enlive) - 237ml bottle PO SCH ×2 (08:00→13:10)
[2023-05-15] MEDS: K and/or MAG REPLACEMENT MC SCH (08:00)
[2023-05-15] MEDS: docusate sod 100mg capsule PO SCH (08:00)
--- NOTE | 2023-05-15 08:09 | NUR ---
F/u 05/14: Pt continues on a sodium restricted diet with average PO intake 23% x 9 meals but appears to be improving a bit due to documented two 50% and one 100% from the last four most recent meals. Noted Ensure Enlive active in EMR since 05/11 however pt hadn't been receiving it. Scheduled to have first Ensure Enlive today;pending ONS PO intake. Discussed with RN regarding liberalizing to regular given overall inadequate intake, RN to discuss with MD. Pt underwent another paracentesis on 05/13 of which 8.9L was removed of fluid and now receiving routine lasix. Pt is currently on 4L of nasal cannula. LBM on 05/14 with documented diarrhea per EMR. Will continue to monitor. Recommendations: 1. continue low sodium diet; liberalize to regular if poor PO persists d/w RN;encourage PO 2. Ensure Enlive TIDWM 3. continue routine MVI, thiamine, and folate due to Etoh hx 4. routine bowel care 5. daily scaled wt Addendum: 05/15/23 at [address] Amended: Links added.
[2023-05-15] MEDS: pantoprazole 40MG/NS 100ML BAG 100 ML IV SCH (08:59)
[2023-05-15] MEDS: spironolactone 50 MG tablet PO SCH (08:59)
[2023-05-15] MEDS: thiamine 100mg tablet PO SCH (09:00)
[2023-05-15] MEDS: magnesium Cl slow-release 64mg tablet PO PRN ×2 (09:00→17:09)
[2023-05-15] MEDS: folic acid 1mg tablet PO SCH (09:01)
[2023-05-15] MEDS: multivitamins, therapeutics tablet PO SCH (09:01)
[2023-05-15] MEDS: furosemide 40mg tablet PO SCH (09:02)
[2023-05-15] MEDS: nicotine 21mg patch - 24 hr TD SCH (09:03)
[2023-05-15] MEDS: heparin, porcine 5000 units/ml vial SQ SCH (09:03)
[2023-05-15 11:00] VITALS: BP 91/53; PULSE 104; RESP 18; TEMP 99.9; O2SAT 97
--- NOTE | 2023-05-15 14:38 | NUR ---
I was told this morning by ID that the pt's CL may not be needed and to check with the doctor if we can remove the CL. I checked with Dr Ott and he said to remove the CL. It has since been removed.
[2023-05-15 15:54] VITALS: BP 97/52; PULSE 114; RESP 22; TEMP 100.7; O2SAT 94
--- NOTE | 2023-05-15 16:31 | NUR ---
Tried to call report to [facility] for transfer report. No call was picked up. I will call again soon.
--- NOTE | 2023-05-15 16:56 | NUR ---
Called [facility] again and was transferred to the nursing station. The receiving RN is busy and they will call back when available.
[2023-05-15 17:10] VITALS: RESP 18
--- NOTE | 2023-05-15 18:14 | NUR ---
Pt has been picked up for transfer by [facility] 7 en route to [facility]. Transfer packet filled out and given to [facility] crew. report given and questions answered.
[2023-05-16 11:38] LABS: AFP,SERUM, TUMOR MARKER <1.8 ng/mL (0.0-9.2); HBSAG SCREEN Negative (Negative); HEPATITIS C VIRUS ANTIBODY Non Reactive (Non Reactive)
== END 2023-05-15 18:10 | disposition short-term general hospital (02) | DRG 871 ==
LOC: ER 07:50 → ED HOLD 12:13 → CICU 2S 15:57 → PCU 3S 05-12 16:48
PROVIDERS: ADMIT Internal Medicine Critical Care Medicine; ATTEND Internal Medicine Critical Care Medicine
PROC: 05HY33Z Insertion of Infusion Device into Upper Vein, Percutaneous Approach (ICD-10-PCS; 2023-05-07)
PROC: 0W9G3ZX Drainage of Peritoneal Cavity, Percutaneous Approach, Diagnostic (ICD-10-PCS; principal; 2023-05-08)
PROC: 0W9G3ZZ Drainage of Peritoneal Cavity, Percutaneous Approach (ICD-10-PCS; 2023-05-13)
DX: A41.9 Sepsis, unspecified organism (principal); J96.01 Acute respiratory failure with hypoxia; K76.7 Hepatorenal syndrome; K83.1 Obstruction of bile duct; N17.0 Acute kidney failure with tubular necrosis; R65.21 Severe sepsis with septic shock; K85.20 Alcohol induced acute pancreatitis without necrosis or infection; D68.9 Coagulation defect, unspecified; E46 Unspecified protein-calorie malnutrition; I82.3 Embolism and thrombosis of renal vein; N39.0 Urinary tract infection, site not specified; K76.6 Portal hypertension; E87.1 Hypo-osmolality and hyponatremia; K86.0 Alcohol-induced chronic pancreatitis; Z66 Do not resuscitate; F10.20 Alcohol dependence, uncomplicated; E83.42 Hypomagnesemia; D69.6 Thrombocytopenia, unspecified; F17.210 Nicotine dependence, cigarettes, uncomplicated; E87.6 Hypokalemia; D53.9 Nutritional anemia, unspecified; K76.82 Hepatic encephalopathy; K76.0 Fatty (change of) liver, not elsewhere classified; D53.1 Other megaloblastic anemias, not elsewhere classified; E86.0 Dehydration; K70.31 Alcoholic cirrhosis of liver with ascites; K72.10 Chronic hepatic failure without coma; Z79.899 Other long term (current) drug therapy; Z68.25 Body mass index [BMI] 25.0-25.9, adult; Z71.41 Alcohol abuse counseling and surveillance of alcoholic
CPT/HCPCS: 36415; 49083; 71045; 76700; 80053; 81001; 82042; 82103; 82140; 82570; 82948; 82977; 83605; 83690; 83735; 83880; 84132; 84157; 84300; 84484; 84560; 85008; 85025; 85610; 85730; 86803; 87040; 87070; 87088; 87340; 87522; 89051; 93005; 93306; 97161; 97530; 97535; 99285; A4615; A5200; A6213; A6250; A6253; A6258; A6449; C1751; C9113; G0378; J0696; J1644; J2270; J2405; J3370; J7030; J7040; J7050; P9045; P9047

== ENCOUNTER 2023-05-30 07:53 | Day surgery (SDC) | payer BC ==
[~2023-05-30] VITALS: Ht 180.3 cm; Wt 72.7 kg
[2023-05-30] VITALS (8 sets, daily range): BP systolic 95–111; BP diastolic 59–73; PULSE 88–98; RESP 16; TEMP 97.5; O2SAT 98–100
[~2023-05-30 07:53] MED LIST changes: +MIDO10TA PO; +NAPR-996 PO; -SODI100035 PO; +TRAZ-251 PO
[2023-05-30] MEDS ORDERED: normal saline 1000ml 1,000 ML IV PRN (08:15)
[2023-05-30] MEDS ORDERED: albumin 25% 100mL bottle x 1 IV PRN (08:15)
[2023-05-30] MEDS ORDERED: MORP15TA PO (08:29)
[2023-05-30] MEDS ORDERED: VANC125C5 PO (08:29)
[2023-05-30] MEDS ORDERED: CIPR500T5 PO (08:29)
[2023-05-30] MEDS ORDERED: MIDO10TA PO (09:04)
[2023-06-06] MEDS ORDERED: NICO-630 TOP (08:53)
[2023-06-06] MEDS ORDERED: LACT10SO3 PO (08:53)
[2023-06-06] MEDS ORDERED: MIDO5TAB4 PO (08:59)
[2023-06-06] MEDS ORDERED: CIPR500T5 PO (08:59)
[2023-06-06] MEDS ORDERED: MIDO10TA PO (09:00)
== END 2023-05-30 10:05 | disposition home or self-care (01) ==
LOC: SSTAY O 07:53
PROVIDERS: ATTEND Radiology Vascular & Interventional Radiology
DX: K70.31 Alcoholic cirrhosis of liver with ascites (principal); I95.9 Hypotension, unspecified; K76.6 Portal hypertension; E80.6 Other disorders of bilirubin metabolism; K76.82 Hepatic encephalopathy; E87.1 Hypo-osmolality and hyponatremia; E87.6 Hypokalemia; E83.42 Hypomagnesemia; K21.9 Gastro-esophageal reflux disease without esophagitis; D50.9 Iron deficiency anemia, unspecified; D69.6 Thrombocytopenia, unspecified; F10.21 Alcohol dependence, in remission; Z98.890 Other specified postprocedural states; Z79.899 Other long term (current) drug therapy
CPT/HCPCS: 49083; P9047; A6258

== ENCOUNTER 2023-06-18 15:32 | Emergency (ER) | payer BC ==
[~2023-06-18 15:32] MED LIST changes: +CIPR500T5 PO; -FURO20TA4 PO; +LACT10SO3 PO; +MORP15TA PO; -NAPR-996 PO; +NICO-630 TOP; -OMEP40CA21 PO; +PANT-47 PO; +POTA-207 PO; -PROP20TA6 PO; -SPIR25TA5 PO
== END 2023-06-18 15:43 | disposition left against medical advice (07) ==
LOC: ER 15:33
DX: I95.9 Hypotension, unspecified (principal); Z53.21 Procedure and treatment not carried out due to patient leaving prior to being seen by health care provider

== ENCOUNTER 2023-06-21 07:18 | Day surgery (SDC) | payer BC ==
[2023-06-21] VITALS (9 sets, daily range): BP systolic 93–106; BP diastolic 55–65; PULSE 69–81; RESP 14–16; TEMP 97.9; O2SAT 97–100
[~2023-06-21] VITALS: Ht 180.3 cm; Wt 63.1 kg
[2023-06-21] MEDS: albumin 25% 100mL bottle x 1 IV PRN ×2 (09:19→09:29)
== END 2023-06-21 10:45 | disposition home or self-care (01) ==
LOC: SSTAY O 07:18
PROVIDERS: ATTEND Radiology Diagnostic Radiology
DX: K70.31 Alcoholic cirrhosis of liver with ascites (principal); I95.9 Hypotension, unspecified; K76.6 Portal hypertension; K21.9 Gastro-esophageal reflux disease without esophagitis; E80.6 Other disorders of bilirubin metabolism; K76.82 Hepatic encephalopathy; E87.1 Hypo-osmolality and hyponatremia; E87.6 Hypokalemia; E83.42 Hypomagnesemia; J96.01 Acute respiratory failure with hypoxia; D50.9 Iron deficiency anemia, unspecified; D69.6 Thrombocytopenia, unspecified; F10.21 Alcohol dependence, in remission; Z79.899 Other long term (current) drug therapy
CPT/HCPCS: 49083; C1729; J3490; P9047; A6258; A6449

== ENCOUNTER 2023-07-08 07:10 | Day surgery (SDC) | payer BC ==
[~2023-07-08] VITALS: Ht 180.3 cm; Wt 59.5 kg
[2023-07-08] VITALS (11 sets, daily range): BP systolic 85–119; BP diastolic 55–77; PULSE 62–77; RESP 16; TEMP 98.2; O2SAT 16–100
[~2023-07-08 07:10] MED LIST changes: -PANT-47 PO; +PANT40TA54 PO; -POTA-207 PO; +POTA-208 PO
[2023-07-08] MEDS ORDERED: normal saline 1000ml 1,000 ML IV PRN (07:35)
[2023-07-08] MEDS: albumin 25% 100mL bottle x 1 IV PRN ×2 (09:55→12:44)
[2023-07-08] MEDS ORDERED: midodrine tablet 2.5 MG TABLET PO ONE ×2 (12:40)
[2023-07-08] MEDS ORDERED: midodrine 5mg tablet PO ONE (12:50)
[2023-07-15] MEDS ORDERED: ONDA4TAB12 PO (08:08)
== END 2023-07-08 13:55 | disposition home or self-care (01) ==
LOC: SSTAY O 07:10
PROVIDERS: ATTEND Radiology Vascular & Interventional Radiology
DX: K70.31 Alcoholic cirrhosis of liver with ascites (principal); K21.9 Gastro-esophageal reflux disease without esophagitis; K76.6 Portal hypertension; D50.9 Iron deficiency anemia, unspecified; Z79.899 Other long term (current) drug therapy; Z98.890 Other specified postprocedural states
CPT/HCPCS: 49083; C1729; J3490; J7030; P9047; A6258; A6449

== ENCOUNTER 2023-07-16 14:07 | Inpatient (IN) | payer BC ==
[~2023-07-16] VITALS: Ht 180.3 cm; Wt 32.6 kg
[~2023-07-16 14:07] MED LIST changes: -MIDO5TAB4 PO; -NICO-630 TOP; +ONDA4TAB12 PO; -POTA-208 PO; -TRAZ-251 PO
[2023-07-16 15:22] LABS: APTT 27 SECONDS (22-32); INR 1.1 INR; PROTHROMBIN TIME 11.7 SECONDS (9.0-12.0)
[2023-07-16 15:28] LABS: ALBUMIN 3.2 G/DL (3.4-5.0); ALBUMIN/GLOBULIN RATIO 0.6 (1.1-1.5); ANION GAP 9 (8-16); ASPARTATE AMINO TRANSFERASE 27 U/L (10-37); BILIRUBIN,TOTAL 1.2 MG/DL (0.1-1.0); BLOOD UREA NITROGEN 46 MG/DL (7-18); BUN/CREATININE RATIO 20.4 (10.0-20.0); CALCIUM 10.7 MG/DL (8.5-10.1); CHLORIDE 95 MMOL/L (99-107); CREATININE 2.26 MG/DL (0.40-0.90); GLUCOSE 130 MG/DL (70-104); SODIUM 126 MMOL/L (135-145); TOTAL CARBON DIOXIDE 21.8 MMOL/L (24-32); TOTAL PROTEIN 8.2 G/DL (6.4-8.2); eCRCL 23 ML/MIN; eGFR 23 ML/MIN
[2023-07-16 15:29] LABS: ALANINE AMINOTRANSFERASE 16 U/L (12-78); ALKALINE PHOSPHATASE 155 IU/L (46-116)
[2023-07-16 15:30] LABS: AMYLASE 394 U/L (25-115)
[2023-07-16 15:32] LABS: POTASSIUM 4.5 MMOL/L (3.5-5.1)
[2023-07-16 15:40] LABS: LIPASE 1327 U/L (16-77)
[2023-07-16 18:50] LABS: BILIRUBIN,URINE NEGATIVE (Neg); CLARITY,URINE SLIGHTLY CLOUDY (Clear); COLOR,URINE YELLOW (Yellow); GLUCOSE, URINE NEGATIVE (Neg); KETONES,URINE NEGATIVE (Neg); LEUKOCYTE ESTERASE ,URINE NEGATIVE (Neg); NITRITES, URINE NEGATIVE (Neg); OCCULT BLOOD,URINE NEGATIVE (Neg); PROTEIN,URINE NEGATIVE (Neg); UROBILINOGEN,URINE 0.2 E.U/dL (0.2-1.0)
[2023-07-16 19:22] LABS: HEMATOCRIT 34.7 % (35.0-45.0); HEMOGLOBIN 11.6 g/dl (12.0-16.0); MEAN CORPUSCULAR HEMOGLOBIN 31.9 PG (27.0-31.0); MEAN CORPUSCULAR HGB CONC 33.4 g/dL (33.0-36.5); MEAN CORPUSCULAR VOLUME 95.5 FL (78-98); MEAN PLATELET VOLUME 8.4 FL (7.4-10.4); PLATELET COUNT 204 X10'3 (140-440); RED BLOOD COUNT 3.63 X10'6 (4.20-5.60); RED CELL DISTRIBUTION WIDTH 16.7 % (11.5-14.5); WHITE BLOOD COUNT 8.8 X10'3 (4.5-11.0)
[2023-07-16] MEDS ORDERED: lactulose 20gm/30ml cup PO ONE (19:25)
[2023-07-16 19:36] LABS: UA COLLECTION TYPE VOIDED
--- NOTE | 2023-07-16 19:40 | NUR ---
urine rejected for culture
[2023-07-16 19:41] LABS: BACTERIA,URINE 1+ /HPF (Neg); MUCUS STRANDS FEW /LPF (Neg); RBC,URINE 0-2 /HPF (0-2); SQUAMOUS EPITHELIAL CELL,UR MANY /LPF (FEW); TRANSITIONAL EPI CELLS,URINE FEW /HPF; WBC,URINE 0-4 /HPF (0-4); YEAST FEW /HPF (NEGATIVE)
[2023-07-16] MEDS ORDERED: ondansetron/PF 4mg/2ml inj IV PRN (20:00)
[2023-07-16] MEDS ORDERED: acetaminophen 325mg tablet PO PRN ×2 (20:00)
[2023-07-16] MEDS ORDERED: potassium Cl 40MEQ/1/2NS 520ml 520 ML IV PRN (20:00)
[2023-07-16] MEDS ORDERED: magnesium 2GM in 50ml NS 50 ML IV PRN (20:00)
[2023-07-16] MEDS ORDERED: potassium Cl 20 mEq SR tablet PO PRN ×2 (20:00)
[2023-07-16] MEDS ORDERED: morphine 2 MG/ML inj. syringe IV PRN ×2 (20:00)
[2023-07-16] MEDS ORDERED: magnesium 4gm in 100ml NS 100 ML IV PRN (20:00)
[2023-07-16] MEDS ORDERED: magnesium Cl slow-release 64mg tablet PO PRN (20:00)
[2023-07-16] MEDS ORDERED: nicotine 14mg patch - 24hr TD ONE (20:05)
[2023-07-16 20:31] LABS: TOTAL CELLS COUNTED 100
[2023-07-16 20:32] LABS: ANISOCYTOSIS 1+; PLATELET ESTIMATE NORMAL
[2023-07-16 20:33] LABS: TARGET CELLS FEW
[2023-07-16] MEDS ORDERED: TRAZ-251 PO (20:37)
[2023-07-16] MEDS ORDERED: LORazepam 2 mg/ml vial IV ONE (20:50)
[2023-07-16] MEDS: normal saline 1000ml 1,000 ML IV SCH (20:54)
[2023-07-16 21:39] VITALS: BP 136/75; PULSE 81; RESP 15; TEMP 97.5; O2SAT 95
[2023-07-16] MEDS: rifaximin 550mg tablet PO SCH (22:37)
[2023-07-16 23:19] VITALS: RESP 18; O2SAT 94
[2023-07-17 01:59] VITALS: BP 102/69; PULSE 90; RESP 15; TEMP 98.4; O2SAT 99
[2023-07-17] MEDS: normal saline 1000ml 1,000 ML IV SCH ×2 (05:08→16:00)
[2023-07-17 06:00] VITALS: BP 106/54; PULSE 97; RESP 16; TEMP 98.6; O2SAT 99
--- NOTE | 2023-07-17 07:15 | NUR ---
I have received report and had the opportunity to ask questions and assume patient care. No distress at this time.
[2023-07-17] MEDS: pantoprazole 40mg Tablet.DR PO SCH ×3 (07:30→19:48)
[2023-07-17 08:00] VITALS: RESP 16; O2SAT 99
[2023-07-17] MEDS: multivitamins, therapeutics tablet PO SCH (08:00)
[2023-07-17] MEDS: enoxaparin 40mg/0.4ml syringe SUBCUT SCH (08:00)
[2023-07-17] MEDS: midodrine 5mg tablet PO SCH ×3 (08:00→16:00)
[2023-07-17] MEDS: lactulose 20gm/30ml cup PO SCH ×2 (08:00→19:48)
[2023-07-17] MEDS: rifaximin 550mg tablet PO SCH ×2 (08:00→19:48)
[2023-07-17 08:31] LABS: BASOPHILS # (AUTO) 0.1 X10'3 (0-0.2); BASOPHILS % (AUTO) 0.9 % (0-1); EOSINOPHILS # (AUTO) 0.2 X10'3 (0-0.9); EOSINOPHILS % (AUTO) 2.1 % (0-6); HEMATOCRIT 27.7 % (35.0-45.0); HEMOGLOBIN 9.6 g/dl (12.0-16.0); LYMPHOCYTES # (AUTO) 2.4 X10'3 (1.1-4.8); LYMPHOCYTES % (AUTO) 31.5 % (21-51); MEAN CORPUSCULAR HEMOGLOBIN 32.9 PG (27.0-31.0); MEAN CORPUSCULAR HGB CONC 34.5 g/dL (33.0-36.5); MEAN CORPUSCULAR VOLUME 95.3 FL (78-98); MEAN PLATELET VOLUME 8.2 FL (7.4-10.4); MONOCYTES # (AUTO) 1.2 X10'3 (0-0.9); MONOCYTES % (AUTO) 15.4 % (2-12); NEUTROPHILS # (AUTO) 3.8 X10'3 (1.8-7.7); NEUTROPHILS % (AUTO) 50.1 % (42-75); PLATELET COUNT 165 X10'3 (140-440); RED BLOOD COUNT 2.91 X10'6 (4.20-5.60); RED CELL DISTRIBUTION WIDTH 16.5 % (11.5-14.5); WHITE BLOOD COUNT 7.6 X10'3 (4.5-11.0)
[2023-07-17 09:17] LABS: ANION GAP 9 (8-16); BLOOD UREA NITROGEN 43 MG/DL (7-18); BUN/CREATININE RATIO 22.3 (10.0-20.0); CALCIUM 9.7 MG/DL (8.5-10.1); CHLORIDE 101 MMOL/L (99-107); CREATININE 1.93 MG/DL (0.40-0.90); GLUCOSE 88 MG/DL (70-104); POTASSIUM 4.3 MMOL/L (3.5-5.1); SODIUM 130 MMOL/L (135-145); TOTAL CARBON DIOXIDE 20.5 MMOL/L (24-32); eCRCL 18 ML/MIN; eGFR 27 ML/MIN
[2023-07-17 09:18] LABS: ALANINE AMINOTRANSFERASE 12 U/L (12-78); ALBUMIN 2.5 G/DL (3.4-5.0); ALBUMIN/GLOBULIN RATIO 0.6 (1.1-1.5); ALKALINE PHOSPHATASE 120 IU/L (46-116); ASPARTATE AMINO TRANSFERASE 22 U/L (10-37); MAGNESIUM 1.6 MG/DL (1.5-2.4); PHOSPHORUS 3.7 MG/DL (2.3-4.5); TOTAL PROTEIN 6.5 G/DL (6.4-8.2)
--- NOTE | 2023-07-17 14:08 | NUR ---
Noted pt with a low BMI of 10.0 using wt of 32.6 kg (72 lbs) however patient's first wt taken the same day is 49.8 kg (110 lbs). Per EMR pt presented with c/o confusion and admit for pancreatitis and worsening renal function. Pt currently NPO. Pt seen at bedside, difficult to obtain information as pt very sleepy during RD interview. Pt states she is starving though PO intake SOAP DRIER OPERATOR was hit and miss however initially states she was drinking one Ensure a day then later reported drinking 2-3 Ensure a day. Pt does report likely not eating adequate protein SOAP DRIER OPERATOR despite increased needs r/t decreased liver function and frequent paracentesis. Pt reports UBW 110 lbs with no known wt loss. Per EMR pt with EtOH liver cirrhosis with frequent paracentesis. Using PA note and paracentesis report from 07/15 pt with a cumulative fluid loss of 58,150 mL from paracentesis 04/15-07/15. 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 Weight likely to fluctuate d/t changes in fluid status however given appearance pt likely has experienced a change in dry weight as pt with visible severe fat and muscle wasting throughout body. Per EMR wt hx pt 81.4 kg (179 lbs) 05/10, if documented scaled weights are accurate this is severe wt loss of 38.5% in just over two months. Pt predicted to have suboptimal PO intake SOAP DRIER OPERATOR, currently meeting criteria for severe malnutrition. Pt denies food allergies or difficulty chewing/swallowing. Pt provided with verbal education regarding increasing protein intake and Ensure coupons. Pt verbalized understanding. RD contact information provided and pt encouraged to reach out if needed. Will continue to follow closely. Recommendations: 1) Advance to sodium restricted diet as medically indicated to assist with prevention in fluid retention 2) Consider Ensure Enlive TID with diet advancement for nutrition repletion 3) Continue routine MVI 4) Routine bowel care 5) Weekly scaled weights Addendum: 11/01/23 at [address] Amended: Links added.
--- NOTE | 2023-07-17 14:41 | NUR ---
Got an approval to advance her diet to CL diet per resident.
--- NOTE | 2023-07-17 15:50 | NUR ---
I AGREE WITH BEREKET FILM PAINTER ASSESSMENT
--- NOTE | 2023-07-17 18:31 | NUR ---
Problems reprioritized. Patient report given, questions answered & plan of care reviewed with CAROLYN Burgos.
[2023-07-17 19:12] LABS: LIPASE 1292 U/L (16-77)
[2023-07-17] MEDS: metoprolol tartrate 12.5mg (1/2 tablet) PO SCH (19:54)
[2023-07-17] MEDS: CefTRIAXone/D5W-Rocephin 1gm 50 ML IV SCH (23:04)
[2023-07-18 01:00] VITALS: BP 95/48; PULSE 82; RESP 16; TEMP 99.3; O2SAT 90
--- NOTE | 2023-07-18 01:37 | NUR ---
because of restraints and bipap had to sit for another pt for sometime, no 1800's were done and missed 2200's (vitals)
--- NOTE | 2023-07-18 03:00 | NUR ---
I agree with PACKAGING DESIGNER's assessment
[2023-07-18] MEDS: normal saline 1000ml 1,000 ML IV SCH ×2 (04:29→12:00)
[2023-07-18 06:00] VITALS: BP 92/52; PULSE 98; RESP 18; TEMP 97.8; O2SAT 100
--- NOTE | 2023-07-18 06:43 | NUR ---
Problems reprioritized. Patient report given, questions answered & plan of care reviewed with trey lazcano.
[2023-07-18] MEDS: pantoprazole 40mg Tablet.DR PO SCH ×2 (07:30→08:00)
[2023-07-18 07:48] VITALS: RESP 18; O2SAT 100
[2023-07-18] MEDS: enoxaparin 40mg/0.4ml syringe SUBCUT SCH (08:00)
[2023-07-18] MEDS: metoprolol tartrate 12.5mg (1/2 tablet) PO SCH (08:00)
[2023-07-18] MEDS: rifaximin 550mg tablet PO SCH (08:00)
[2023-07-18] MEDS: multivitamins, therapeutics tablet PO SCH (08:17)
[2023-07-18] MEDS: midodrine 5mg tablet PO SCH ×2 (08:17→12:21)
[2023-07-18] MEDS: lactulose 20gm/30ml cup PO SCH (08:18)
[2023-07-18] MEDS: CefTRIAXone/D5W-Rocephin 1gm 50 ML IV SCH (08:19)
[2023-07-18] MEDS ORDERED: spironolactone 25 MG tablet PO SCH (08:30)
[2023-07-18 08:43] LABS: BASOPHILS # (AUTO) 0.1 X10'3 (0-0.2); BASOPHILS % (AUTO) 0.7 % (0-1); EOSINOPHILS # (AUTO) 0.2 X10'3 (0-0.9); EOSINOPHILS % (AUTO) 2.3 % (0-6); HEMATOCRIT 29.7 % (35.0-45.0); LYMPHOCYTES # (AUTO) 2.9 X10'3 (1.1-4.8); LYMPHOCYTES % (AUTO) 32.1 % (21-51); MEAN CORPUSCULAR HEMOGLOBIN 32.1 PG (27.0-31.0); MEAN CORPUSCULAR HGB CONC 33.6 g/dL (33.0-36.5); MEAN CORPUSCULAR VOLUME 95.5 FL (78-98); MONOCYTES % (AUTO) 10.6 % (2-12); NEUTROPHILS # (AUTO) 4.9 X10'3 (1.8-7.7); NEUTROPHILS % (AUTO) 54.3 % (42-75); PLATELET COUNT 165 X10'3 (140-440); RED CELL DISTRIBUTION WIDTH 16.6 % (11.5-14.5); WHITE BLOOD COUNT 9.1 X10'3 (4.5-11.0)
[2023-07-18 09:08] LABS: ALANINE AMINOTRANSFERASE 12 U/L (12-78); ALBUMIN 2.2 G/DL (3.4-5.0); ALBUMIN/GLOBULIN RATIO 0.6 (1.1-1.5); ALKALINE PHOSPHATASE 118 IU/L (46-116); ANION GAP 9 (8-16); ASPARTATE AMINO TRANSFERASE 20 U/L (10-37); BLOOD UREA NITROGEN 39 MG/DL (7-18); BUN/CREATININE RATIO 21.2 (10.0-20.0); CALCIUM 9.1 MG/DL (8.5-10.1); CHLORIDE 98 MMOL/L (99-107); CREATININE 1.84 MG/DL (0.40-0.90); GLUCOSE 100 MG/DL (70-104); MAGNESIUM 1.5 MG/DL (1.5-2.4); PHOSPHORUS 2.9 MG/DL (2.3-4.5); POTASSIUM 4.7 MMOL/L (3.5-5.1); SODIUM 126 MMOL/L (135-145); TOTAL CARBON DIOXIDE 18.7 MMOL/L (24-32); TOTAL PROTEIN 6.1 G/DL (6.4-8.2); eCRCL 18 ML/MIN; eGFR 29 ML/MIN
[2023-07-18 09:16] LABS: LACTIC SEPSIS 1.9 MMOL/L (0.4-2.0)
[2023-07-18 11:00] VITALS: BP 96/50; PULSE 88; RESP 14; TEMP 98.3; O2SAT 95
[2023-07-18] MEDS ORDERED: SPIR25TA PO (12:49)
[2023-07-18] MEDS ORDERED: LACT10SO7 PO (12:49)
[2023-07-18] MEDS ORDERED: SODI100035 PO (12:53)
--- NOTE | 2023-07-18 14:48 | NUR ---
PAGER ID: [phone] MESSAGE: Please call Honorio on [facility] , [phone].
[2023-07-18 15:00] VITALS: BP 80/41; PULSE 100; RESP 21; TEMP 98.3; O2SAT 99
--- NOTE | 2023-07-18 15:53 | NUR ---
PAGER ID: [phone] MESSAGE: GRISELDA PRAKASH [phone]. BP taken three times manually. BP is still low, last reading 80/42. Continue with DC? - Nelly/GEORGIA BrantleyU [id number]
[2023-07-18] MEDS ORDERED: FLUD0.1T PO (16:23)
--- NOTE | 2023-07-18 16:38 | NUR ---
discussed decreased bp 80/[address] rowe. she states that it likely is caused by liver failure and chronic. she states pt is ok to dc home.
--- NOTE | 2023-07-18 17:39 | NUR ---
Patient's IV was DC with canula intact. Education provided on diet, management, take medications as directed, and follow up with PCP. Patient was sent home in private vehicle with all belongings in hand.
[2023-07-18] MEDS ORDERED: CIPR-259 PO (18:47)
== END 2023-07-18 17:30 | disposition home health service (06) | DRG 441 ==
LOC: ER 14:08 → ED HOLD 20:02 → PCU 3S 21:22
PROVIDERS: ADMIT Internal Medicine; ATTEND Internal Medicine
DX: K76.82 Hepatic encephalopathy (principal); K85.90 Acute pancreatitis without necrosis or infection, unspecified; N18.4 Chronic kidney disease, stage 4 (severe); E87.1 Hypo-osmolality and hyponatremia; E46 Unspecified protein-calorie malnutrition; Z68.1 Body mass index [BMI] 19.9 or less, adult; Z20.822 Contact with and (suspected) exposure to COVID-19; D64.9 Anemia, unspecified; K72.10 Chronic hepatic failure without coma; F17.210 Nicotine dependence, cigarettes, uncomplicated; F10.10 Alcohol abuse, uncomplicated; Z79.899 Other long term (current) drug therapy
CPT/HCPCS: 36415; 80053; 81001; 82140; 82150; 82948; 83605; 83690; 83735; 84100; 84145; 85007; 85025; 85610; 85730; 87040; 87077; 87081; 87186; 87811; 97116; 97161; 97530; 99285; A6449; G0378; J0696; J1650; J2060; J7030

== ENCOUNTER 2023-07-22 07:10 | Day surgery (SDC) | payer BC ==
[~2023-07-22] VITALS: Ht 180.3 cm; Wt 58.6 kg
[~2023-07-22 07:10] MED LIST changes: +CIPR-259 PO; -CIPR500T5 PO; +FLUD0.1T PO; -LACT10SO3 PO; +LACT10SO7 PO; +SODI100035 PO; +SPIR25TA PO; +TRAZ-251 PO
[2023-07-22] MEDS ORDERED: albumin 25% 100mL bottle x 1 IV PRN (07:25)
[2023-07-22] MEDS ORDERED: ondansetron/PF 4mg/2ml inj IV PRN (13:30)
[2023-07-22] MEDS ORDERED: magnesium Cl slow-release 64mg tablet PO PRN (13:30)
[2023-07-22] MEDS ORDERED: magnesium 2GM in 50ml NS 50 ML IV PRN (13:30)
[2023-07-22] MEDS ORDERED: potassium Cl 20 mEq SR tablet PO PRN ×2 (13:30)
[2023-07-22] MEDS ORDERED: acetaminophen 325mg tablet PO PRN ×2 (13:30)
[2023-07-22] MEDS ORDERED: magnesium 4gm in 100ml NS 100 ML IV PRN (13:30)
[2023-07-22] MEDS ORDERED: potassium Cl 40MEQ/1/2NS 520ml 520 ML IV PRN (13:30)
[2023-07-22] MEDS ORDERED: MIDO5TAB4 PO (16:21)
[2023-07-22] MEDS ORDERED: FLUD0.1T PO (16:25)
[2023-07-22] MEDS ORDERED: LACT10SO3 PO (16:25)
[2023-07-22] MEDS ORDERED: MSC15T PO (16:25)
[2023-07-22] MEDS ORDERED: PANT-47 PO (16:25)
[2023-07-22] MEDS ORDERED: SPIR25TA5 PO (16:26)
[2023-07-22] MEDS ORDERED: enoxaparin 30mg/0.3ml syringe SUBCUT SCH (20:00)
== END 2023-07-22 07:58 | disposition home or self-care (01) ==
LOC: SSTAY O 07:10
PROVIDERS: ATTEND Radiology Vascular & Interventional Radiology
DX: R18.8 Other ascites (principal); Z53.8 Procedure and treatment not carried out for other reasons; I95.9 Hypotension, unspecified; K74.60 Unspecified cirrhosis of liver; Z79.899 Other long term (current) drug therapy
CPT/HCPCS: 80053; A6258; A6449

== ENCOUNTER 2023-07-22 08:07 | Inpatient (IN) | payer BC ==
[~2023-07-22] VITALS: Ht 180.3 cm; Wt 53.6 kg
[2023-07-22 09:47] LABS: BASOPHILS % (AUTO) 0.2 % (0-1); EOSINOPHILS # (AUTO) 0.1 X10'3 (0-0.9); EOSINOPHILS % (AUTO) 0.4 % (0-6); HEMATOCRIT 33.6 % (35.0-45.0); HEMOGLOBIN 11.2 g/dl (12.0-16.0); LYMPHOCYTES # (AUTO) 1.3 X10'3 (1.1-4.8); LYMPHOCYTES % (AUTO) 6.4 % (21-51); MEAN CORPUSCULAR HEMOGLOBIN 32.5 PG (27.0-31.0); MEAN CORPUSCULAR HGB CONC 33.4 g/dL (33.0-36.5); MEAN CORPUSCULAR VOLUME 97.4 FL (78-98); MEAN PLATELET VOLUME 8.2 FL (7.4-10.4); MONOCYTES # (AUTO) 1.8 X10'3 (0-0.9); MONOCYTES % (AUTO) 8.9 % (2-12); NEUTROPHILS # (AUTO) 16.5 X10'3 (1.8-7.7); NEUTROPHILS % (AUTO) 84.1 % (42-75); PLATELET COUNT 163 X10'3 (140-440); RED BLOOD COUNT 3.45 X10'6 (4.20-5.60); RED CELL DISTRIBUTION WIDTH 16.3 % (11.5-14.5); WHITE BLOOD COUNT 19.7 X10'3 (4.5-11.0)
[2023-07-22 09:59] LABS: BLOOD UREA NITROGEN 67 MG/DL (7-18); CHLORIDE 89 MMOL/L (99-107); POTASSIUM 4.1 MMOL/L (3.5-5.1)
[2023-07-22 10:00] LABS: SODIUM 118 MMOL/L (135-145)
[2023-07-22 10:01] LABS: ALANINE AMINOTRANSFERASE 14 U/L (12-78); ALBUMIN 2.4 G/DL (3.4-5.0); ALBUMIN/GLOBULIN RATIO 0.5 (1.1-1.5); ALKALINE PHOSPHATASE 156 IU/L (46-116); ANION GAP 14 (8-16); ASPARTATE AMINO TRANSFERASE 24 U/L (10-37); BILIRUBIN,TOTAL 0.8 MG/DL (0.1-1.0); BUN/CREATININE RATIO 17.2 (10.0-20.0); CALCIUM 9.4 MG/DL (8.5-10.1); CREATININE 3.89 MG/DL (0.40-0.90); GLUCOSE 91 MG/DL (70-104); TOTAL PROTEIN 7.2 G/DL (6.4-8.2); eCRCL 16 ML/MIN; eGFR 12 ML/MIN
--- NOTE | 2023-07-22 10:01 | NUR ---
LAB NOTIFIED CRITICAL LABS NA 118 AND CO2 14.7. RN TIRSO NOTIFIED DR CHEATHAM AND RNS VIOLA AND HIRA.
[2023-07-22 10:02] LABS: TOTAL CARBON DIOXIDE 14.7 MMOL/L (24-32)
--- NOTE | 2023-07-22 10:05 | NUR ---
Pt has abnormal labs, Ohlfs aware plans on keeping pt in ED for tx
[2023-07-22] MEDS ORDERED: normal saline 1000ML IV soln IVB ONE (10:15)
[2023-07-22] MEDS ORDERED: fentaNYL/PF 50MCG/1 ML 2ML syringe IV ONE (11:30)
[2023-07-22 12:06] LABS: BILIRUBIN,URINE NEGATIVE (Neg); CLARITY,URINE CLOUDY (Clear); COLOR,URINE YELLOW (Yellow); GLUCOSE, URINE NEGATIVE (Neg); KETONES,URINE TRACE mg/dl (Neg); LEUKOCYTE ESTERASE ,URINE SMALL (Neg); NITRITES, URINE NEGATIVE (Neg); OCCULT BLOOD,URINE TRACE-INTACT (Neg); PROTEIN,URINE 100 mg/dl (Neg); UROBILINOGEN,URINE 0.2 E.U/dL (0.2-1.0)
--- NOTE | 2023-07-22 12:07 | NUR ---
paracentesis complete 1200ml removed, sample sent to lab.
[2023-07-22] MEDS ORDERED: cefepime 2g/NS 100ml ADVANTAGE 100 ML IV ONE (12:10)
[2023-07-22 12:11] LABS: UA COLLECTION TYPE CLN CATCH MIDSTREAM
[2023-07-22 12:14] LABS: BACTERIA,URINE 2+ /HPF (Neg); RBC,URINE 0-2 /HPF (0-2); WBC,URINE 30-50 /HPF (0-4)
[2023-07-22 12:15] LABS: MUCUS STRANDS NONE SEEN /LPF (Neg); SQUAMOUS EPITHELIAL CELL,UR MODERATE /LPF (FEW); YEAST MANY /HPF (NEGATIVE)
[2023-07-22] MEDS ORDERED: lactulose 20gm/30ml cup PO ONE (12:50)
[2023-07-22 13:20] LABS: BFAPPEAR HAZY; BFSOURCE ASCITES FLD
[2023-07-22 13:21] LABS: BF RBC COUNT 198 /CU MM; BF WBC COUNT 93 /CU MM (0-1000); BFCOLOR YELLOW; BFVOLUME 47 ML
[2023-07-22 13:27] LABS: GLUCOSE,BODY FLUID 100 MG/DL; LDH,BODY FLUID 28 U/L
[2023-07-22 13:46] LABS: TOTAL PROTEIN,BODY FLUID < 2.0 G/DL
[2023-07-22] MEDS ORDERED: potassium Cl 40MEQ/1/2NS 520ml 520 ML IV PRN (13:50)
[2023-07-22] MEDS ORDERED: ondansetron/PF 4mg/2ml inj IV PRN ×2 (13:50→16:30)
[2023-07-22] MEDS ORDERED: magnesium 4gm in 100ml NS 100 ML IV PRN (13:50)
[2023-07-22] MEDS ORDERED: magnesium 2GM in 50ml NS 50 ML IV PRN (13:50)
[2023-07-22] MEDS ORDERED: acetaminophen 325mg tablet PO PRN ×4 (13:50→16:30)
[2023-07-22] MEDS ORDERED: magnesium Cl slow-release 64mg tablet PO PRN (13:50)
[2023-07-22] MEDS ORDERED: potassium Cl 20 mEq SR tablet PO PRN ×2 (13:50)
[2023-07-22 13:55] LABS: LYMPHOCYTES,BODY FLUID 26 %; MONOCYTES,BODY FLUID 22 %; NEUTROPHILS,BODY FLUID 52 %
[2023-07-22] MEDS: lactulose 20gm/30ml cup PO SCH ×2 (14:50→21:06)
[2023-07-22] MEDS: CefTRIAXone/D5W-Rocephin 1gm 50 ML IV SCH (15:56)
[2023-07-22] MEDS ORDERED: MIDO5TAB4 PO (16:21)
[2023-07-22] MEDS ORDERED: MSC15T PO (16:25)
[2023-07-22] MEDS ORDERED: PANT-47 PO (16:25)
[2023-07-22] MEDS ORDERED: FLUD0.1T PO (16:25)
[2023-07-22] MEDS ORDERED: LACT10SO3 PO (16:25)
[2023-07-22] MEDS ORDERED: SPIR25TA5 PO (16:26)
[2023-07-22] MEDS: pantoprazole 40mg Tablet.DR PO SCH (21:05)
[2023-07-22] MEDS: enoxaparin 30mg/0.3ml syringe SUBCUT SCH (21:05)
[2023-07-22] MEDS: fludrocortisone acetate 0.1mg tablet PO SCH (21:07)
[2023-07-22] MEDS: rifaximin 550mg tablet PO SCH (21:07)
--- NOTE | 2023-07-23 07:35 | NUR ---
Note alejandrina in EDM - 07/23/23 at 0841 by GIOVANNA Hygiene given for incontinent urine. Linen changed, placed condom cath to drainage via gravity for comfort. Patient awake to name, mild tremors noted with movement, slurred speech, +tachycardia, +tachypnea, oriented to name and place.
[2023-07-23] MEDS: spironolactone 25 MG tablet PO SCH (08:00)
[2023-07-23] MEDS: lactulose 20gm/30ml cup PO SCH ×3 (08:00→20:53)
[2023-07-23] MEDS: CefTRIAXone/D5W-Rocephin 1gm 50 ML IV SCH (10:05)
[2023-07-23] MEDS: fludrocortisone acetate 0.1mg tablet PO SCH ×2 (10:06→23:03)
[2023-07-23] MEDS: multivitamins, therapeutics tablet PO SCH (10:06)
[2023-07-23] MEDS: rifaximin 550mg tablet PO SCH ×2 (10:06→23:10)
[2023-07-23] MEDS: pantoprazole 40mg Tablet.DR PO SCH ×2 (10:06→20:54)
[2023-07-23] MEDS: midodrine 5mg tablet PO SCH ×3 (10:06→17:37)
[2023-07-23 10:08] LABS: BASOPHILS % (AUTO) 0.1 % (0-1); EOSINOPHILS % (AUTO) 0.1 % (0-6); HEMOGLOBIN 10.1 g/dl (12.0-16.0); LYMPHOCYTES # (AUTO) 1.5 X10'3 (1.1-4.8); MEAN CORPUSCULAR HEMOGLOBIN 32.2 PG (27.0-31.0); MEAN CORPUSCULAR HGB CONC 33.6 g/dL (33.0-36.5); MEAN CORPUSCULAR VOLUME 95.9 FL (78-98); MEAN PLATELET VOLUME 8.3 FL (7.4-10.4); MONOCYTES # (AUTO) 2.4 X10'3 (0-0.9); MONOCYTES % (AUTO) 9.6 % (2-12); NEUTROPHILS % (AUTO) 84.2 % (42-75); PLATELET COUNT 144 X10'3 (140-440); RED BLOOD COUNT 3.13 X10'6 (4.20-5.60); RED CELL DISTRIBUTION WIDTH 16.5 % (11.5-14.5)
[2023-07-23 10:36] VITALS: BP 94/59; PULSE 101; RESP 16; O2SAT 98
[2023-07-23] MEDS ORDERED: albumin (human) 25% 100 ML IV solution IV ONE (11:00)
--- NOTE | 2023-07-23 11:00 | NUR ---
pt in with angio recieving paracenthesis. morning medications given and abx infusing.
[2023-07-23 11:12] VITALS: BP 94/56; PULSE 99; RESP 14; O2SAT 98
[2023-07-23 11:29] LABS: ANISOCYTOSIS 1+; PLATELET ESTIMATE NORMAL; TOTAL CELLS COUNTED 100
[2023-07-23 11:30] LABS: SMUDGE CELLS 1+
[2023-07-23 11:31] LABS: HYPOCHROMASIA 1+; POIKILOCYTOSIS FEW; TOXIC GRANULATION 1+
[2023-07-23] MEDS: CefTRIAXone 2gm/D5W 50ml BAG 50 ML IV SCH (11:35)
[2023-07-23] MEDS: morphine 2 MG/ML inj. syringe IV PRN ×2 (12:21→23:04)
--- NOTE | 2023-07-23 14:54 | NUR ---
pt with family at bedside
--- NOTE | 2023-07-23 17:50 | NUR ---
pt is concerned about an appointment that she has this and is worried about not making it since she is being admitted. this rn spoke with dr. parson regarding her concerns and this rn relayed his message to the patient that she is being admitted and will need iv abx and needs to stay here.
[2023-07-23] MEDS: enoxaparin 30mg/0.3ml syringe SUBCUT SCH (20:53)
[2023-07-23] MEDS: HYDROcodone/acetaminophen 5mg/325mg tablet PO PRN (21:00)
[2023-07-23 22:30] VITALS: BP 90/52; PULSE 90; RESP 16; TEMP 98; O2SAT 98
[2023-07-24] VITALS (8 sets, daily range): BP systolic 85–98; BP diastolic 47–61; PULSE 96–110; RESP 13–18; TEMP 97.1–98.2; O2SAT 96–98
[2023-07-24] MEDS: midodrine 5mg tablet PO SCH ×3 (00:25→16:21)
[2023-07-24 06:15] LABS: BASOPHILS # (AUTO) 0.1 X10'3 (0-0.2); BASOPHILS % (AUTO) 0.3 % (0-1); EOSINOPHILS % (AUTO) 0.2 % (0-6); HEMATOCRIT 28.5 % (35.0-45.0); HEMOGLOBIN 9.8 g/dl (12.0-16.0); LYMPHOCYTES # (AUTO) 1.8 X10'3 (1.1-4.8); MEAN CORPUSCULAR HEMOGLOBIN 32.5 PG (27.0-31.0); MEAN CORPUSCULAR HGB CONC 34.3 g/dL (33.0-36.5); MEAN CORPUSCULAR VOLUME 94.6 FL (78-98); MEAN PLATELET VOLUME 8.6 FL (7.4-10.4); MONOCYTES % (AUTO) 10.3 % (2-12); NEUTROPHILS # (AUTO) 15.9 X10'3 (1.8-7.7); NEUTROPHILS % (AUTO) 80.2 % (42-75); PLATELET COUNT 140 X10'3 (140-440); RED BLOOD COUNT 3.01 X10'6 (4.20-5.60); RED CELL DISTRIBUTION WIDTH 16.3 % (11.5-14.5); WHITE BLOOD COUNT 19.8 X10'3 (4.5-11.0)
--- NOTE | 2023-07-24 06:15 | NUR ---
Report to Yanelis LEON.
[2023-07-24] MEDS ORDERED: normal saline 1000ml 1,000 ML IV SCH ×2 (06:25→11:50)
[2023-07-24] MEDS: lactulose 20gm/30ml cup PO SCH ×3 (07:29→20:41)
[2023-07-24] MEDS: multivitamins, therapeutics tablet PO SCH (07:33)
[2023-07-24] MEDS: pantoprazole 40mg Tablet.DR PO SCH ×2 (07:33→20:36)
[2023-07-24] MEDS: fludrocortisone acetate 0.1mg tablet PO SCH ×2 (07:33→20:36)
[2023-07-24] MEDS: rifaximin 550mg tablet PO SCH ×2 (07:33→20:36)
[2023-07-24] MEDS: spironolactone 25 MG tablet PO SCH (07:34)
[2023-07-24] MEDS ORDERED: albumin (human) 25% 100 ML IV solution IV SCH (08:00)
[2023-07-24] MEDS: CefTRIAXone 2gm/D5W 50ml BAG 50 ML IV SCH (08:12)
[2023-07-24 08:50] LABS: ALBUMIN 2.3 G/DL (3.4-5.0); ANION GAP 14 (8-16); BLOOD UREA NITROGEN 78 MG/DL (7-18); BUN/CREATININE RATIO 18.5 (10.0-20.0); CALCIUM 8.9 MG/DL (8.5-10.1); CHLORIDE 89 MMOL/L (99-107); CREATININE 4.21 MG/DL (0.40-0.90); GLUCOSE 86 MG/DL (70-104); POTASSIUM 4.7 MMOL/L (3.5-5.1); eCRCL 14 ML/MIN; eGFR 11 ML/MIN
[2023-07-24 08:53] LABS: SODIUM 118 MMOL/L (135-145); TOTAL CARBON DIOXIDE 14.6 MMOL/L (24-32)
--- NOTE | 2023-07-24 09:02 | NUR ---
Critical CO2 called by MD audrey notified.
[2023-07-24] MEDS: octreotide 100mcg/1 ml ampule SQ SCH ×2 (10:35→17:49)
--- NOTE | 2023-07-24 13:53 | NUR ---
NS 75Mls/hr stopped per MD order
[2023-07-24] MEDS: albumin (human) 25% 100 ML IV solution IV SCH ×2 (15:12→16:00)
--- NOTE | 2023-07-24 15:16 | NUR ---
PRESSURE ULCER EDUCATION: DEFINITION: A pressure ulcer is an area of skin that breaks down when you stay in one position too long. The constant pressure against the skin reduces the blood flow to that area and the affected tissue dies. CAUSES: "Being bedridden or in a wheelchair "Fragile skin "Having a chronic condition, such as diabetes or vascular disease "Inability to move certain parts of your body without assistance "Older age "Incontinence of urine or stool SYMPTOMS: "A reddened area that DOES NOT turn white when pressed on - this can be the beginning of a pressure ulcer "A blister, deep sore or a crater - these can be advanced pressure ulcers FIRST AID: "Relieve the pressure on this area "Keep the area clean and dry "Call your primary doctor if you see any of the above symptoms "DO NOT massage the area "DO NOT use a donut shaped or ring shaped pillow- these actually interfere with the blood flow and cause complications PREVENTION: "Check for pressure ulcers everyday "Change position at least every two hours to relieve pressure "Use items that help relieve pressure- pillows, sheepskin, foam padding, and powders. "Keep skin clean and dry "Eat healthy well balanced meals "Exercise daily IF YOU SEE ANY OF THESE SYMPTOMS WHILE IN THE HOSPITAL - TELL YOUR NURSE IMMEDIATELY. IF YOU SEE ANY OF THESE SYMPTOMS WHILE AT HOME OR HAVE ANY QUESTIONS OR CONCERNS ABOUT PRESSURE ULCERS - CALL YOUR PRIMARY DOCTOR IMMEDIATELY. Addendum: 07/24/23 at 1516 by Loida Drake RN Amended: Links added.
[2023-07-24] MEDS: HYDROcodone/acetaminophen 5mg/325mg tablet PO PRN (15:31)
--- NOTE | 2023-07-24 15:53 | NUR ---
Initial: Pt admit DX severe sepsis, hypotension, hyponatremia, and liver cirrhosis hx etoh now sober per EMR. BMI 18.0 pending scaled wt s/p two paracenteses 3.5L removal past 2 days since admit per EMR. Pt on regular diet now w/ 1.2L fluid restriction refused first documented meal WL today w/ noted abdominal pain in EMR. Pt visibly cachectic during RD visit and reports UBW ~160 pounds February when first DX liver cirrhosis and continued wt loss/appetite decrease past 5 months. If current reported wt accurate would be ~19% UBW loss 5 months severe though despite no scaled wt hx pt meets severe malnutrition criteria on visible assessment alone- MD notified. Pt reports takes daily one-a-day women's gummy MVI at home; RD educated pt on importance of MVM supplementation, nutrition repletion strategies given malnutrition status, and provided RD contact information w/ ONS coupons. Pt reports will mainly consume whole milk TID, jello TID, oatmeal WB, Ensure Enlive TID, and celebrity chef entrepreneur media personality salad w/ ranch WS tonight; dietary and MD notified. RD paged MD recommends changing current MVI to MVM w/ Fe given malnutrition status. Will send milk and jello TID despite fluid restriction given severe malnutrition status. LBM 07/23 receiving routine lactulose BID per EMR. Will monitor for PO acceptance and further nutrition intervention needs this admit. Rec: 1. continue regular/1.2L fluid-restricted diet per MD; milk, jello, and Ensures TID to be exception given severe malnutrition status 2. Ensure Enlive TIDWM Str WB, Brunilda WL, Van WS per pt preference; pending physician verification in EMR 3. routine MVM w/ Fe given severe malnutrition status 4. routine bowel care per MD 5. scaled wt this admit; subsequent daily wt Addendum: 07/24/23 at [address] Amended: Links added.
[2023-07-24 16:00] LABS: APTT 51 SECONDS (22-32); FIBRINOGEN 180 MG/DL (177-424); INR 1.3 INR; PROTHROMBIN TIME 13.9 SECONDS (9.0-12.0)
--- NOTE | 2023-07-24 17:13 | NUR ---
FOOD SAFETY FIELD SPECIALIST documentation: I have reviewed and agree with all interventions, assessments performed and documented by CAROLYN Hilario.
[2023-07-24] MEDS: lactose-reduced food (Ensure Enlive) - 237ml bottle PO SCH (18:00)
[2023-07-24] MEDS: enoxaparin 30mg/0.3ml syringe SUBCUT SCH (20:39)
[2023-07-25] MEDS: midodrine 5mg tablet PO SCH ×3 (00:37→15:47)
[2023-07-25] MEDS: octreotide 100mcg/1 ml ampule SQ SCH ×3 (00:43→15:50)
[2023-07-25] MEDS: albumin (human) 25% 100 ML IV solution IV SCH ×3 (00:52→15:49)
[2023-07-25] MEDS: morphine 2 MG/ML inj. syringe IV PRN ×2 (01:01→15:47)
--- NOTE | 2023-07-25 06:13 | NUR ---
Patient in room ORTHO 4009. I have received report from Inocente LEON and had the opportunity to ask questions and assume patient care.
[2023-07-25 06:26] LABS: BASOPHILS % (AUTO) 0.3 % (0-1); EOSINOPHILS # (AUTO) 0.2 X10'3 (0-0.9); EOSINOPHILS % (AUTO) 1.5 % (0-6); HEMATOCRIT 25.9 % (35.0-45.0); HEMOGLOBIN 8.7 g/dl (12.0-16.0); LYMPHOCYTES # (AUTO) 2.1 X10'3 (1.1-4.8); LYMPHOCYTES % (AUTO) 15.6 % (21-51); MEAN CORPUSCULAR HEMOGLOBIN 31.9 PG (27.0-31.0); MEAN CORPUSCULAR HGB CONC 33.7 g/dL (33.0-36.5); MEAN CORPUSCULAR VOLUME 94.9 FL (78-98); MEAN PLATELET VOLUME 8.5 FL (7.4-10.4); MONOCYTES # (AUTO) 1.7 X10'3 (0-0.9); MONOCYTES % (AUTO) 12.5 % (2-12); NEUTROPHILS # (AUTO) 9.6 X10'3 (1.8-7.7); NEUTROPHILS % (AUTO) 70.1 % (42-75); PLATELET COUNT 126 X10'3 (140-440); RED BLOOD COUNT 2.73 X10'6 (4.20-5.60); WHITE BLOOD COUNT 13.7 X10'3 (4.5-11.0)
--- NOTE | 2023-07-25 06:37 | NUR ---
Report to Radha WEN
[2023-07-25 07:00] VITALS: BP 80/45; PULSE 94; RESP 14; TEMP 97.7; O2SAT 97
[2023-07-25] MEDS: lactose-reduced food (Ensure Enlive) - 237ml bottle PO SCH ×3 (08:00→18:00)
[2023-07-25] MEDS: lactulose 20gm/30ml cup PO SCH ×3 (08:00→20:00)
[2023-07-25] MEDS: spironolactone 25 MG tablet PO SCH (08:00)
[2023-07-25] MEDS: CefTRIAXone 2gm/D5W 50ml BAG 50 ML IV SCH (08:18)
[2023-07-25] MEDS: pantoprazole 40mg Tablet.DR PO SCH ×2 (08:21→21:09)
[2023-07-25] MEDS: rifaximin 550mg tablet PO SCH ×2 (08:21→21:09)
[2023-07-25] MEDS: multivitamins, therapeutics tablet PO SCH (08:21)
[2023-07-25] MEDS: fludrocortisone acetate 0.1mg tablet PO SCH ×2 (08:21→21:09)
[2023-07-25 10:00] VITALS: BP 85/49; PULSE 97; RESP 15; TEMP 98; O2SAT 98
[2023-07-25] MEDS: NUT.TX.IMP.RENAL FXN,LAC-REDUC (Nepro) 237 ML VANILLA PO SCH (12:52)
[2023-07-25 18:00] VITALS: BP 90/53; PULSE 95; RESP 16; TEMP 98.2; O2SAT 95
--- NOTE | 2023-07-25 18:57 | NUR ---
Patient seen by Dr Kam. Protein intake encouraged. patient now on protein shakes. Painful at times. medicated with MS with good result. @$ hr urine initiated at 1730hrs. report given to Inocente LEON
[2023-07-25] MEDS: enoxaparin 30mg/0.3ml syringe SUBCUT SCH (20:00)
[2023-07-25 22:00] VITALS: BP 88/49; PULSE 100; RESP 16; TEMP 98.3; O2SAT 96
[2023-07-25 22:05] VITALS: BP 90/51
[2023-07-26] MEDS: midodrine 5mg tablet PO SCH ×3 (00:14→17:17)
[2023-07-26] MEDS: albumin (human) 25% 100 ML IV solution IV SCH ×2 (00:29→08:46)
--- NOTE | 2023-07-26 02:10 | NUR ---
I have reviewed and agree with all interventions, assessments performed and documented by Inocente LEON.
[2023-07-26] MEDS: morphine 2 MG/ML inj. syringe IV PRN ×2 (03:12→22:01)
--- NOTE | 2023-07-26 04:02 | NUR ---
zero protein calorie intake this shift. pt ate less than 25% of carbohydrates, did not drink protein shake despite prompting Addendum: 07/26/23 at 0405 by Inocente Lang LVN Amended: Links added.
[2023-07-26 06:00] VITALS: BP 91/52; PULSE 98; RESP 15; TEMP 98; O2SAT 94
[2023-07-26 06:32] LABS: BASOPHILS # (AUTO) 0.1 X10'3 (0-0.2); BASOPHILS % (AUTO) 0.6 % (0-1); EOSINOPHILS # (AUTO) 0.2 X10'3 (0-0.9); EOSINOPHILS % (AUTO) 1.7 % (0-6); HEMATOCRIT 24.8 % (35.0-45.0); HEMOGLOBIN 8.4 g/dl (12.0-16.0); LYMPHOCYTES # (AUTO) 1.9 X10'3 (1.1-4.8); LYMPHOCYTES % (AUTO) 17.8 % (21-51); MEAN CORPUSCULAR HGB CONC 33.7 g/dL (33.0-36.5); MEAN CORPUSCULAR VOLUME 94.9 FL (78-98); MEAN PLATELET VOLUME 8.2 FL (7.4-10.4); MONOCYTES # (AUTO) 1.5 X10'3 (0-0.9); MONOCYTES % (AUTO) 13.9 % (2-12); NEUTROPHILS # (AUTO) 7.2 X10'3 (1.8-7.7); PLATELET COUNT 121 X10'3 (140-440); RED BLOOD COUNT 2.61 X10'6 (4.20-5.60); RED CELL DISTRIBUTION WIDTH 16.2 % (11.5-14.5); WHITE BLOOD COUNT 10.9 X10'3 (4.5-11.0)
--- NOTE | 2023-07-26 06:40 | NUR ---
report to Darnell LEON
[2023-07-26 08:00] VITALS: RESP 14; O2SAT 98
[2023-07-26] MEDS: rifaximin 550mg tablet PO SCH ×2 (08:00→20:32)
[2023-07-26] MEDS: NUT.TX.IMP.RENAL FXN,LAC-REDUC (Nepro) 237 ML VANILLA PO SCH (08:00)
[2023-07-26] MEDS: lactulose 20gm/30ml cup PO SCH ×2 (08:00→20:00)
[2023-07-26] MEDS: spironolactone 25 MG tablet PO SCH (08:00)
[2023-07-26] MEDS: lactose-reduced food (Ensure Enlive) - 237ml bottle PO SCH ×3 (08:00→18:00)
[2023-07-26] MEDS: octreotide 100mcg/1 ml ampule SQ SCH ×3 (08:00→16:00)
[2023-07-26] MEDS: multivitamins, therapeutics tablet PO SCH (08:30)
[2023-07-26] MEDS: fludrocortisone acetate 0.1mg tablet PO SCH ×2 (08:30→20:32)
[2023-07-26] MEDS: pantoprazole 40mg Tablet.DR PO SCH ×2 (08:31→20:32)
[2023-07-26] MEDS: CefTRIAXone 2gm/D5W 50ml BAG 50 ML IV SCH (08:47)
[2023-07-26 10:00] VITALS: BP 89/50; PULSE 94; RESP 14; TEMP 98.1; O2SAT 98
[2023-07-26 11:47] LABS: ALANINE AMINOTRANSFERASE 12 U/L (12-78); ALBUMIN 3.3 G/DL (3.4-5.0); ALBUMIN/GLOBULIN RATIO 1.3 (1.1-1.5); ALKALINE PHOSPHATASE 87 IU/L (46-116); ANION GAP 12 (8-16); ASPARTATE AMINO TRANSFERASE 22 U/L (10-37); BILIRUBIN,TOTAL 0.8 MG/DL (0.1-1.0); BLOOD UREA NITROGEN 78 MG/DL (7-18); BUN/CREATININE RATIO 18.8 (10.0-20.0); CALCIUM 8.7 MG/DL (8.5-10.1); CHLORIDE 93 MMOL/L (99-107); CREATININE 4.14 MG/DL (0.40-0.90); GLUCOSE 108 MG/DL (70-104); POTASSIUM 3.8 MMOL/L (3.5-5.1); SODIUM 122 MMOL/L (135-145); TOTAL CARBON DIOXIDE 16.8 MMOL/L (24-32); TOTAL PROTEIN 5.9 G/DL (6.4-8.2); eCRCL 13 ML/MIN; eGFR 11 ML/MIN
--- NOTE | 2023-07-26 11:47 | NUR ---
Pt refused protein and carbs on tray. Consumed 25% of her milk and 75% of her nepro shake. Addendum: 07/26/23 at 1149 by Darnell Shore LVN FAMILY ASSESSMENT WORKER Amended: Links added.
--- NOTE | 2023-07-26 13:34 | NUR ---
PRESSURE ULCER EDUCATION: DEFINITION: A pressure ulcer is an area of skin that breaks down when you stay in one position too long. The constant pressure against the skin reduces the blood flow to that area and the affected tissue dies. CAUSES: "Being bedridden or in a wheelchair "Fragile skin "Having a chronic condition, such as diabetes or vascular disease "Inability to move certain parts of your body without assistance "Older age "Incontinence of urine or stool SYMPTOMS: "A reddened area that DOES NOT turn white when pressed on - this can be the beginning of a pressure ulcer "A blister, deep sore or a crater - these can be advanced pressure ulcers FIRST AID: "Relieve the pressure on this area "Keep the area clean and dry "Call your primary doctor if you see any of the above symptoms "DO NOT massage the area "DO NOT use a donut shaped or ring shaped pillow- these actually interfere with the blood flow and cause complications PREVENTION: "Check for pressure ulcers everyday "Change position at least every two hours to relieve pressure "Use items that help relieve pressure- pillows, sheepskin, foam padding, and powders. "Keep skin clean and dry "Eat healthy well balanced meals "Exercise daily IF YOU SEE ANY OF THESE SYMPTOMS WHILE IN THE HOSPITAL - TELL YOUR NURSE IMMEDIATELY. IF YOU SEE ANY OF THESE SYMPTOMS WHILE AT HOME OR HAVE ANY QUESTIONS OR CONCERNS ABOUT PRESSURE ULCERS - CALL YOUR PRIMARY DOCTOR IMMEDIATELY. Addendum: 07/26/23 at 1334 by Christel Kerr LVN Amended: Links added.
--- NOTE | 2023-07-26 15:06 | NUR ---
HIGHWAY RESEARCH ENGINEER documentation: I have reviewed and agree with all interventions, assessments performed and documented by Darnell LEON.
--- NOTE | 2023-07-26 15:06 | NUR ---
CAROLYN Medication Administration: For this medication-pass time frame, all medication were reviewed, dispensed, administered and documented per hospital policy by Darnell LEON.
[2023-07-26 18:00] VITALS: BP 83/50; PULSE 63; RESP 16; TEMP 98.2; O2SAT 98
--- NOTE | 2023-07-26 18:44 | NUR ---
Problems reprioritized. Patient report given, questions answered & plan of care reviewed with BEHZAD Brothers.
--- NOTE | 2023-07-26 18:54 | NUR ---
Problems reprioritized. Patient report given, questions answered & plan of care reviewed with BEHZAD Garcia.
[2023-07-26] MEDS: enoxaparin 30mg/0.3ml syringe SUBCUT SCH (20:00)
[2023-07-26 21:50] LABS: OSMOLALITY UA 317 MOSM/K (50-1400); TOTAL VOLUME 24HRS,URINE 500 ML
[2023-07-26 22:12] LABS: TOTAL PROTEIN 24HR,URINE 418.5 MG/24HR (28-141)
[2023-07-26 22:15] VITALS: BP 83/50; PULSE 63; RESP 16; TEMP 98.2; O2SAT 98
[2023-07-26 22:28] LABS: UREA NITROGEN 24HR,URINE 2.9 GM/24HR (7-20)
[2023-07-26 23:10] LABS: TOTAL VOLUME 24HRS,URINE 500 ML
[2023-07-27] MEDS: midodrine 5mg tablet PO SCH ×3 (00:29→17:00)
[2023-07-27] MEDS: octreotide 100mcg/1 ml ampule SQ SCH ×3 (00:31→16:00)
[2023-07-27 06:00] VITALS: BP 79/44; PULSE 92; RESP 15; TEMP 97.5; O2SAT 97
[2023-07-27 06:18] LABS: BASOPHILS % (AUTO) 0.4 % (0-1); EOSINOPHILS # (AUTO) 0.3 X10'3 (0-0.9); EOSINOPHILS % (AUTO) 2.4 % (0-6); HEMATOCRIT 26.5 % (35.0-45.0); HEMOGLOBIN 9.1 g/dl (12.0-16.0); LYMPHOCYTES # (AUTO) 1.9 X10'3 (1.1-4.8); LYMPHOCYTES % (AUTO) 17.6 % (21-51); MEAN CORPUSCULAR HEMOGLOBIN 32.5 PG (27.0-31.0); MEAN CORPUSCULAR HGB CONC 34.2 g/dL (33.0-36.5); MEAN PLATELET VOLUME 8.6 FL (7.4-10.4); MONOCYTES # (AUTO) 1.5 X10'3 (0-0.9); MONOCYTES % (AUTO) 13.7 % (2-12); NEUTROPHILS % (AUTO) 65.9 % (42-75); PLATELET COUNT 125 X10'3 (140-440); RED BLOOD COUNT 2.79 X10'6 (4.20-5.60); RED CELL DISTRIBUTION WIDTH 16.3 % (11.5-14.5); WHITE BLOOD COUNT 10.7 X10'3 (4.5-11.0)
[2023-07-27 06:24] LABS: ALANINE AMINOTRANSFERASE 7 U/L (12-78); ALBUMIN/GLOBULIN RATIO 1.1 (1.1-1.5); ALKALINE PHOSPHATASE 115 IU/L (46-116); ANION GAP 17 (8-16); ASPARTATE AMINO TRANSFERASE 18 U/L (10-37); BILIRUBIN,TOTAL 0.7 MG/DL (0.1-1.0); BLOOD UREA NITROGEN 76 MG/DL (7-18); BUN/CREATININE RATIO 19.9 (10.0-20.0); CALCIUM 8.4 MG/DL (8.5-10.1); CHLORIDE 90 MMOL/L (99-107); CREATININE 3.82 MG/DL (0.40-0.90); GLUCOSE 108 MG/DL (70-104); POTASSIUM 3.5 MMOL/L (3.5-5.1); SODIUM 121 MMOL/L (135-145); TOTAL PROTEIN 5.7 G/DL (6.4-8.2); eCRCL 15 ML/MIN; eGFR 12 ML/MIN
[2023-07-27 06:26] LABS: TOTAL CARBON DIOXIDE 14.1 MMOL/L (24-32)
[2023-07-27] MEDS ORDERED: albumin (human) 25% 100 ML IV solution IV ONE (06:55)
--- NOTE | 2023-07-27 06:56 | NUR ---
patient urine out put 200mls. B/P 85/49. Co2 14.[address] . [address] value . Dr dailey paged. ABG ordered and Albumin ordered. report given to Darnell LEON
[2023-07-27 07:06] VITALS: BP 85/42
[2023-07-27] MEDS: lactulose 20gm/30ml cup PO SCH ×2 (07:43→21:27)
[2023-07-27] MEDS: rifaximin 550mg tablet PO SCH ×2 (07:43→21:27)
[2023-07-27] MEDS: pantoprazole 40mg Tablet.DR PO SCH ×2 (07:43→21:27)
[2023-07-27] MEDS: multivitamins, therapeutics tablet PO SCH (07:43)
[2023-07-27] MEDS: fludrocortisone acetate 0.1mg tablet PO SCH ×2 (07:43→21:27)
[2023-07-27] MEDS: spironolactone 25 MG tablet PO SCH (07:44)
[2023-07-27 08:00] VITALS: RESP 15; O2SAT 97
[2023-07-27] MEDS: NUT.TX.IMP.RENAL FXN,LAC-REDUC (Nepro) 237 ML VANILLA PO SCH (08:00)
[2023-07-27] MEDS: lactose-reduced food (Ensure Enlive) - 237ml bottle PO SCH ×3 (08:00→18:00)
[2023-07-27 09:55] LABS: ABG BASE EXCESS -11.4 mmol/L (-2.0-2.0); ABG HCO3 12.5 mmol/L (22.0-26.0); ABG OXYGEN SATURATION 96.2 % (94-97); ABG PCO2 (T) 22.7 mmHg (32.0-45.0); ABG PO2 (T) 83.2 mmHg (75.0-100.0); ALLEN'S TEST Yes; FCOHb 0.2 % (0.0-3.9); FHHb 3.8 % (0.0-5.0); MODE ROOM AIR; TOTAL HEMOGLOBIN 9.5 G/dl (12.0-16.0)
[2023-07-27 10:00] VITALS: BP 80/44; PULSE 89; RESP 16; TEMP 97.9; O2SAT 97
[2023-07-27] MEDS: CefTRIAXone 2gm/D5W 50ml BAG 50 ML IV SCH (10:13)
[2023-07-27 10:32] LABS: OSMOLALITY UA 312 MOSM/K (50-1400)
[2023-07-27 10:34] LABS: BILIRUBIN,URINE NEGATIVE (Neg); CLARITY,URINE SLIGHTLY CLOUDY (Clear); COLOR,URINE YELLOW (Yellow); GLUCOSE, URINE NEGATIVE (Neg); KETONES,URINE TRACE mg/dl (Neg); LEUKOCYTE ESTERASE ,URINE NEGATIVE (Neg); NITRITES, URINE NEGATIVE (Neg); OCCULT BLOOD,URINE NEGATIVE (Neg); PH,URINE 5.5 (4.8-8.0); PROTEIN,URINE 30 mg/dl (Neg); UROBILINOGEN,URINE 0.2 E.U/dL (0.2-1.0)
[2023-07-27 10:36] LABS: SODIUM,URINE RANDOM < 15 MEQ/L; TOTAL PROTEIN,URINE RANDOM 105.2 MG/DL
[2023-07-27 10:41] LABS: UA COLLECTION TYPE FOLEY CATH
[2023-07-27 10:42] LABS: RBC,URINE 0-2 /HPF (0-2); WBC,URINE 0-4 /HPF (0-4)
[2023-07-27 10:43] LABS: BACTERIA,URINE NONE SEEN /HPF (Neg); MUCUS STRANDS FEW /LPF (Neg); SQUAMOUS EPITHELIAL CELL,UR NONE SEEN /LPF (FEW); YEAST MANY /HPF (NEGATIVE)
[2023-07-27 11:50] LABS: UA EOSINOPHILS RARE EOS /HPF
--- NOTE | 2023-07-27 13:42 | NUR ---
I have reviewed and agree with the interventions, assessment performed and documentation by Flor Dumont LVN
--- NOTE | 2023-07-27 14:03 | NUR ---
Reassessment: Patient's diet was changed to MM5 with high protein therefore pt was receiving double protein with meals which is not appropriate d/t pt only eating average 16% PO intake of meals since 07/25. Pt to receive normal portion sizes beginning dinner tonight as high protein diet order has been cancelled. Noted a Nepro was ordered QD and pt with fair acceptance, documented with average 75% PO intake of three ONS. Pt to be receiving an Ensure Enlive TID and pt documented to be accepting of Ensure however this is not accurate as pt has not been receiving an Ensure from the kitchen. D/w dietary to send ONS per rx, to begin with dinner tonight. Hopefully PO intake will improve now that pt will be receiving ONS with each meal and no longer receiving an overwhelming amount of food on meal trays. LBM 07/27 per EMR. Will continue to follow closely and make recommendations as appropriate. Recommendations: 1. Continue MM5 diet with 1.5 L fluid restriction per MD; milk, jello, and Ensures TID to be exception given severe malnutrition status 2. Ensure Enlive TIDWM Str WB, Brunilda WL, Van WS per pt preference; Nepro QD per physician 3. Routine MVM with Fe given severe malnutrition status 4. Bowel care per MD 5. Scaled wt this admit; subsequent weekly scaled weights Addendum: 07/27/23 at [address] Amended: Links added.
[2023-07-27] MEDS: morphine 2 MG/ML inj. syringe IV PRN ×2 (14:06→22:47)
[2023-07-27] MEDS: albumin (human) 25% 100 ML IV solution IV SCH (17:08)
[2023-07-27 18:00] VITALS: BP 76/42; PULSE 96; RESP 18; TEMP 98; O2SAT 95
--- NOTE | 2023-07-27 18:51 | NUR ---
Problems reprioritized. Patient report given, questions answered & plan of care reviewed with CAROLYN Yoon.
[2023-07-27 20:00] VITALS: RESP 14; O2SAT 98
[2023-07-27] MEDS: enoxaparin 30mg/0.3ml syringe SUBCUT SCH (21:30)
[2023-07-28] MEDS: albumin (human) 25% 100 ML IV solution IV SCH ×3 (00:24→16:19)
[2023-07-28] MEDS: octreotide 100mcg/1 ml ampule SQ SCH ×3 (00:51→16:10)
[2023-07-28] MEDS: midodrine 5mg tablet PO SCH ×3 (00:53→16:17)
--- NOTE | 2023-07-28 04:30 | NUR ---
HAVE REVIEWED ASSMT CHARTED BY DENNISE LEON AND AGREE WITH IT EXCEPT FOR F/C STILL BEING IN USE. GABE WAS DISCONT'D EARLIER YESTERDAY AND PATIENT DOES HAVE SOME INCONTINENCE AT TIMES. Addendum: 07/28/23 at 1943 by Christel Panchal RN ABOVE NOTE WAS DONE ON INCORRECT PATIENT. I REVIEWED THE ASSMT DONE BY CAROLYN BOWDEN AND AGREE WITH THIS ASSMT. SHE IS INCONTINENT OF STOOL AND F/C PATENT AND YANELIS COREAS URINE.
--- NOTE | 2023-07-28 06:27 | NUR ---
Problems reprioritized. Patient report given, questions answered & plan of care reviewed with Hossein WEN.
--- NOTE | 2023-07-28 06:31 | NUR ---
Patient in room ORTHO 4009. I have received report from DENNISE LEON and had the opportunity to ask questions and assume patient care.
--- NOTE | 2023-07-28 06:49 | NUR ---
Problems reprioritized. Patient report given, questions answered & plan of care reviewed with Hossein WEN.
--- NOTE | 2023-07-28 07:13 | NUR ---
Problems reprioritized. Patient report given TO BALDO LEON, questions answered & plan of care reviewed with .
[2023-07-28] MEDS: fludrocortisone acetate 0.1mg tablet PO SCH ×2 (07:53→21:12)
[2023-07-28] MEDS: rifaximin 550mg tablet PO SCH ×2 (07:53→21:12)
[2023-07-28] MEDS: lactulose 20gm/30ml cup PO SCH ×2 (07:53→20:00)
[2023-07-28] MEDS: multivitamins, therapeutics tablet PO SCH (07:54)
[2023-07-28] MEDS: pantoprazole 40mg Tablet.DR PO SCH ×2 (07:54→21:12)
[2023-07-28] MEDS: lactose-reduced food (Ensure Enlive) - 237ml bottle PO SCH ×3 (07:55→14:00)
[2023-07-28] MEDS: spironolactone 25 MG tablet PO SCH (07:59)
[2023-07-28] MEDS: NUT.TX.IMP.RENAL FXN,LAC-REDUC (Nepro) 237 ML VANILLA PO SCH (08:02)
[2023-07-28] MEDS: CefTRIAXone 2gm/D5W 50ml BAG 50 ML IV SCH (10:08)
[2023-07-28 11:17] LABS: BASOPHILS % (AUTO) 0.4 % (0-1); EOSINOPHILS # (AUTO) 0.2 X10'3 (0-0.9); EOSINOPHILS % (AUTO) 2.6 % (0-6); HEMATOCRIT 25.5 % (35.0-45.0); HEMOGLOBIN 8.6 g/dl (12.0-16.0); LYMPHOCYTES # (AUTO) 1.4 X10'3 (1.1-4.8); LYMPHOCYTES % (AUTO) 14.3 % (21-51); MEAN CORPUSCULAR HEMOGLOBIN 32.4 PG (27.0-31.0); MEAN CORPUSCULAR VOLUME 95.3 FL (78-98); MEAN PLATELET VOLUME 8.3 FL (7.4-10.4); MONOCYTES # (AUTO) 1.2 X10'3 (0-0.9); MONOCYTES % (AUTO) 12.1 % (2-12); NEUTROPHILS # (AUTO) 6.9 X10'3 (1.8-7.7); NEUTROPHILS % (AUTO) 70.6 % (42-75); PLATELET COUNT 116 X10'3 (140-440); RED BLOOD COUNT 2.67 X10'6 (4.20-5.60); RED CELL DISTRIBUTION WIDTH 16.3 % (11.5-14.5); WHITE BLOOD COUNT 9.7 X10'3 (4.5-11.0)
[2023-07-28 11:38] LABS: ALANINE AMINOTRANSFERASE 7 U/L (12-78); ALBUMIN 3.8 G/DL (3.4-5.0); ALBUMIN/GLOBULIN RATIO 1.5 (1.1-1.5); ALKALINE PHOSPHATASE 99 IU/L (46-116); ANION GAP 18 (8-16); ASPARTATE AMINO TRANSFERASE 10 U/L (10-37); BILIRUBIN,TOTAL 0.7 MG/DL (0.1-1.0); BLOOD UREA NITROGEN 85 MG/DL (7-18); BUN/CREATININE RATIO 19.6 (10.0-20.0); CALCIUM 8.9 MG/DL (8.5-10.1); CHLORIDE 92 MMOL/L (99-107); CREATININE 4.34 MG/DL (0.40-0.90); GLUCOSE 128 MG/DL (70-104); PHOSPHORUS 5.9 MG/DL (2.3-4.5); POTASSIUM 3.3 MMOL/L (3.5-5.1); SODIUM 123 MMOL/L (135-145); TOTAL PROTEIN 6.3 G/DL (6.4-8.2); eCRCL 13 ML/MIN; eGFR 11 ML/MIN
[2023-07-28 11:47] LABS: TOTAL CARBON DIOXIDE 13.2 MMOL/L (24-32)
[2023-07-28] MEDS: morphine 2 MG/ML inj. syringe IV PRN ×2 (12:21→20:58)
[2023-07-28] MEDS: HYDROcodone/acetaminophen 5mg/325mg tablet PO PRN (17:56)
[2023-07-28 18:00] VITALS: BP 92/57; PULSE 91; RESP 12; TEMP 98; O2SAT 97
--- NOTE | 2023-07-28 18:54 | NUR ---
Patient in room ORTHO 4009. I have received report from ANGELINE and had the opportunity to ask questions and assume patient care.
[2023-07-28] MEDS: enoxaparin 30mg/0.3ml syringe SUBCUT SCH (21:14)
[2023-07-28 22:00] VITALS: BP 83/45; PULSE 92; RESP 16; TEMP 97.3; O2SAT 97
[2023-07-29] MEDS: midodrine 5mg tablet PO SCH (00:26)
[2023-07-29] MEDS: octreotide 100mcg/1 ml ampule SQ SCH ×3 (00:27→15:57)
[2023-07-29] MEDS: albumin (human) 25% 100 ML IV solution IV SCH ×2 (01:10→07:58)
[2023-07-29] MEDS: morphine 2 MG/ML inj. syringe IV PRN (05:29)
--- NOTE | 2023-07-29 05:54 | NUR ---
BABY STROLLER RENTAL CLERK documentation: I have reviewed and agree with assessment performed and documented by DENNISE Lozoya
[2023-07-29 05:56] LABS: BASOPHILS # (AUTO) 0.1 X10'3 (0-0.2); EOSINOPHILS # (AUTO) 0.4 X10'3 (0-0.9); EOSINOPHILS % (AUTO) 3.9 % (0-6); HEMATOCRIT 24.9 % (35.0-45.0); HEMOGLOBIN 8.5 g/dl (12.0-16.0); LYMPHOCYTES % (AUTO) 18.9 % (21-51); MEAN CORPUSCULAR HEMOGLOBIN 32.6 PG (27.0-31.0); MEAN CORPUSCULAR HGB CONC 34.1 g/dL (33.0-36.5); MEAN CORPUSCULAR VOLUME 95.7 FL (78-98); MEAN PLATELET VOLUME 8.3 FL (7.4-10.4); MONOCYTES # (AUTO) 1.1 X10'3 (0-0.9); MONOCYTES % (AUTO) 10.3 % (2-12); NEUTROPHILS # (AUTO) 6.9 X10'3 (1.8-7.7); NEUTROPHILS % (AUTO) 65.9 % (42-75); PLATELET COUNT 114 X10'3 (140-440); RED CELL DISTRIBUTION WIDTH 16.1 % (11.5-14.5); WHITE BLOOD COUNT 10.4 X10'3 (4.5-11.0)
[2023-07-29 06:00] VITALS: BP 83/47; PULSE 86; RESP 16; TEMP 97.7; O2SAT 97
--- NOTE | 2023-07-29 06:15 | NUR ---
Patient in room ORTHO 4009B. I have received report from CAROLYN Yoon, and had the opportunity to ask questions and assume patient care.
--- NOTE | 2023-07-29 06:25 | NUR ---
Problems reprioritized. Patient report given, questions answered & plan of care reviewed with Yelena WEN.
[2023-07-29 06:31] LABS: ALANINE AMINOTRANSFERASE 13 U/L (12-78); ALBUMIN 3.4 G/DL (3.4-5.0); ALBUMIN/GLOBULIN RATIO 1.3 (1.1-1.5); ALKALINE PHOSPHATASE 131 IU/L (46-116); ANION GAP 17 (8-16); ASPARTATE AMINO TRANSFERASE 19 U/L (10-37); BILIRUBIN,TOTAL 0.6 MG/DL (0.1-1.0); BLOOD UREA NITROGEN 86 MG/DL (7-18); BUN/CREATININE RATIO 18.7 (10.0-20.0); CHLORIDE 92 MMOL/L (99-107); GLUCOSE 131 MG/DL (70-104); POTASSIUM 3.2 MMOL/L (3.5-5.1); SODIUM 123 MMOL/L (135-145); eCRCL 12 ML/MIN; eGFR 10 ML/MIN
[2023-07-29 06:54] LABS: TOTAL CARBON DIOXIDE 14.2 MMOL/L (24-32)
--- NOTE | 2023-07-29 07:14 | NUR ---
Notified Dr Douglas re: CO2 = 14.2 and this AM VS. No new orders.
[2023-07-29] MEDS: NUT.TX.IMP.RENAL FXN,LAC-REDUC (Nepro) 237 ML VANILLA PO SCH ×2 (08:00→09:00)
[2023-07-29] MEDS ORDERED: LORazepam 2 mg/ml vial IV PRN (09:10)
[2023-07-29 10:00] VITALS: BP 85/59; PULSE 71; RESP 15; TEMP 98.3; O2SAT 97
[2023-07-29] MEDS: lactose-reduced food (Ensure Enlive) - 237ml bottle PO SCH ×3 (10:34→18:00)
[2023-07-29] MEDS: rifaximin 550mg tablet PO SCH ×2 (10:35→20:00)
[2023-07-29] MEDS: multivitamins, therapeutics tablet PO SCH (10:36)
[2023-07-29] MEDS: pantoprazole 40mg Tablet.DR PO SCH ×2 (10:36→20:00)
[2023-07-29] MEDS: morphine 10mg/0.5ml (conc. morphine) oral syringe PO PRN ×3 (10:48→21:56)
[2023-07-29] MEDS ORDERED: potassium Cl 20 mEq SR tablet PO PRN ×2 (16:50)
[2023-07-29] MEDS ORDERED: potassium Cl 40MEQ/1/2NS 520ml 520 ML IV PRN (16:50)
[2023-07-29] MEDS ORDERED: magnesium Cl slow-release 64mg tablet PO PRN (16:50)
[2023-07-29] MEDS ORDERED: magnesium 4gm in 100ml NS 100 ML IV PRN (16:50)
[2023-07-29] MEDS ORDERED: magnesium 2GM in 50ml NS 50 ML IV PRN (16:50)
[2023-07-29 18:00] VITALS: BP 88/47; PULSE 83; RESP 12; TEMP 97.6; O2SAT 98
--- NOTE | 2023-07-29 18:00 | NUR ---
Patient report given, questions answered & plan of care reviewed with BEHZAD Blas.
[2023-07-29] MEDS: enoxaparin 30mg/0.3ml syringe SUBCUT SCH (20:00)
[2023-07-29 21:56] VITALS: RESP 12
--- NOTE | 2023-07-30 06:30 | NUR ---
Patient in room ORTHO 4009C. I have received report from BEHZAD Kaplan, and had the opportunity to ask questions and assume patient care. Addendum: 07/30/23 at 0701 by Yelena Magdaleno RN CORRECTION: Patient in room ORTHO 4009B. I have received report from BEHZAD Blas, and had the opportunity to ask questions and assume patient care.
[2023-07-30 07:13] LABS: BASOPHILS # (AUTO) 0.1 X10'3 (0-0.2); BASOPHILS % (AUTO) 1.4 % (0-1); EOSINOPHILS # (AUTO) 0.3 X10'3 (0-0.9); EOSINOPHILS % (AUTO) 3.5 % (0-6); HEMOGLOBIN 9.1 g/dl (12.0-16.0); LYMPHOCYTES # (AUTO) 1.7 X10'3 (1.1-4.8); LYMPHOCYTES % (AUTO) 17.3 % (21-51); MEAN CORPUSCULAR HEMOGLOBIN 32.8 PG (27.0-31.0); MEAN CORPUSCULAR HGB CONC 33.7 g/dL (33.0-36.5); MEAN CORPUSCULAR VOLUME 97.3 FL (78-98); MEAN PLATELET VOLUME 8.4 FL (7.4-10.4); MONOCYTES # (AUTO) 1.1 X10'3 (0-0.9); MONOCYTES % (AUTO) 10.9 % (2-12); NEUTROPHILS # (AUTO) 6.5 X10'3 (1.8-7.7); NEUTROPHILS % (AUTO) 66.9 % (42-75); PLATELET COUNT 123 X10'3 (140-440); RED BLOOD COUNT 2.78 X10'6 (4.20-5.60); RED CELL DISTRIBUTION WIDTH 16.5 % (11.5-14.5); WHITE BLOOD COUNT 9.7 X10'3 (4.5-11.0)
[2023-07-30 07:19] LABS: ALANINE AMINOTRANSFERASE 9 U/L (12-78); ALBUMIN 3.6 G/DL (3.4-5.0); ALBUMIN/GLOBULIN RATIO 1.2 (1.1-1.5); ALKALINE PHOSPHATASE 109 IU/L (46-116); ANION GAP 17 (8-16); ASPARTATE AMINO TRANSFERASE 13 U/L (10-37); BILIRUBIN,TOTAL 0.8 MG/DL (0.1-1.0); BLOOD UREA NITROGEN 90 MG/DL (7-18); BUN/CREATININE RATIO 17.3 (10.0-20.0); CHLORIDE 93 MMOL/L (99-107); CREATININE 5.19 MG/DL (0.40-0.90); GLUCOSE 104 MG/DL (70-104); MAGNESIUM 2.3 MG/DL (1.5-2.4); PHOSPHORUS 7.5 MG/DL (2.3-4.5); POTASSIUM 3.7 MMOL/L (3.5-5.1); SODIUM 123 MMOL/L (135-145); TOTAL PROTEIN 6.5 G/DL (6.4-8.2); eCRCL 11 ML/MIN; eGFR 9 ML/MIN
[2023-07-30 07:22] LABS: TOTAL CARBON DIOXIDE 12.8 MMOL/L (24-32)
[2023-07-30] MEDS: octreotide 100mcg/1 ml ampule SQ SCH ×2 (08:23)
[2023-07-30] MEDS: rifaximin 550mg tablet PO SCH (08:24)
[2023-07-30] MEDS: multivitamins, therapeutics tablet PO SCH (08:25)
[2023-07-30] MEDS: pantoprazole 40mg Tablet.DR PO SCH (08:26)
[2023-07-30] MEDS: morphine 10mg/0.5ml (conc. morphine) oral syringe PO PRN (11:27)
[2023-07-30 16:10] LABS: HEPATITIS C VIRUS ANTIBODY Non Reactive (Non Reactive)
== END 2023-07-30 11:45 | disposition hospice, home (50) | DRG 872 ==
LOC: ER 08:08 → ED HOLD 17:45 → ORTHO 4S 07-23 22:20
PROVIDERS: ADMIT Internal Medicine; ATTEND Internal Medicine
PROC: 0W9G30Z Drainage of Peritoneal Cavity with Drainage Device, Percutaneous Approach (ICD-10-PCS; principal; 2023-07-22)
PROC: 0W9G30Z Drainage of Peritoneal Cavity with Drainage Device, Percutaneous Approach (ICD-10-PCS; 2023-07-23)
DX: A41.9 Sepsis, unspecified organism (principal); E87.1 Hypo-osmolality and hyponatremia; I13.2 Hypertensive heart and chronic kidney disease with heart failure and with stage 5 chronic kidney disease, or end stage renal disease; Z66 Do not resuscitate; I50.20 Unspecified systolic (congestive) heart failure; N18.5 Chronic kidney disease, stage 5; N17.9 Acute kidney failure, unspecified; K70.40 Alcoholic hepatic failure without coma; K70.31 Alcoholic cirrhosis of liver with ascites
CPT/HCPCS: 36415; 36600; 49083; 71045; 80048; 80053; 81001; 82140; 82570; 82803; 82945; 83605; 83615; 83735; 83930; 83935; 84100; 84133; 84145; 84156; 84157; 84300; 84560; 85007; 85018; 85025; 85384; 85610; 85730; 86803; 87040; 87070; 87081; 87088; 87207; 87522; 89051; 93308; 99285; A5200; A6209; A6212; A6213; A6250; A6449; C1729; G0378; J0692; J0696; J1650; J2270; J2354; J3010; J7030; P9047